=== PATIENT | male | born 1970 | race Caucasian/White ===

== ENCOUNTER 2016-03-12 00:33 | Emergency (ER) | payer MEDICARE, MEDICAID ==
[~2016-03-12] VITALS: Ht 180.3 cm; Wt 104.3 kg
[~2016-03-12 00:33] MED LIST: ACET-685 PO; ALBU2.5V2 IH; AMLO10TA4 PO; ATOR20TA PO; BUDE0.5P MC; BUDE10.2 IH; CALC600T4 PO; CARV3.12 PO; CLON0.2T PO; CYCL10TA2 PO; DULO30CA2 PO; GABA100C7 PO; HYDR-3105 PO; HYDR-3195 PO; LEVO175T5 PO; METO50TA2 PO; MINO2.5T PO; OMEP40CA6 PO; PANT40TA5 PO; PROM25TA10 PO; SERT50TA5 PO; SIMV20TA3 PO
--- NOTE | 2016-03-12 00:33 | NUR ---
ARRIVAL 45 YEAR OLD MALE TO ER 3 VIA EMS WITH DIFFICULTY BREATHING SINCE 8P, CHRONIC. LAST DIALYSIS 8 DAYS AGO. BREATHING TREATMENT IN PROGRESS.
--- NOTE | 2016-03-12 00:54 | ER.PDOC ---
General Chief Complaint: Requesting Medical Care Stated Complaint: DIFFICULTY BREATHING Time seen by MD: 00:52 Source: patient Exam Limitations: no limitations History of Present Illness Initial Comments Difficulty breathing. Has not had Dialysis for 8 days. Very non compliant with treatment. Severity: moderate Prior Episodes/Possible Cause: frequent episodes Associated Symptoms: edema Prior symptoms/Treatment: Similar symptoms previous Recenly Seen Treated by Doctor Recently Hospitalized Allergies: Coded Allergies: aspirin (Verified Allergy, Unknown, 02/15/16) codeine (Verified Allergy, Unknown, 02/15/16) enoxaparin (Verified Allergy, Unknown, 02/15/16) heparin (Verified Allergy, Unknown, 02/15/16) promethazine (Verified Allergy, Unknown, 02/15/16) Home Meds Reported Medications Budesonide, Micronized (Budesonide)0.5 Gm Powder0.5 Gm MC DAILY 02/23/16 Carvedilol 3.125MG (Coreg 3.125MG)3.125 Mg Tablet1 Tab PO BID #180 TAB Ref 1 02/23/16 Calcium Carbonate (Calcium)600 Mg [id number] Mg PO DAILY 02/23/16 Budesonide/Formoterol Fumarate (Symbicort 160-4.5 Mcg Inhaler)10.2 Gm Hfa.aer.ad2 Puff IH BID #10.6 GRAM Ref 3 02/23/16 Atorvastatin 20MG (Lipitor 20MG)20 Mg Tablet1 Tab PO DAILY #90 TAB Ref 1 02/23/16 Levothyroxine Sodium 175 Mcg Tablet1 Tab PO DAILY #30 TAB Ref 5 02/23/16 Pantoprazole Sodium 40 Mg Tablet.dr40 Mg PO DAILY 10/19/15 Albuterol Sulfate 2.5 Mg/3 Ml Vial.neb2.5 Mg IH PRN COUGH 01/27/14 Gabapentin 100 Mg Kpjxblx344 Mg PO BID 08/29/13 Past Medical History Surgical History: appendectomy, knee Review of Systems Constitutional: no symptoms reported Respiratory: see HPI Cardiovascular: no symptoms reported Gastrointestinal: no symptoms reported Genitourinary: no symptoms reported Musculoskeletal: no symptoms reported Skin: no symptoms reported Psychiatric/Neurological: no symptoms reported All Other Systems: Reviewed and Negative Physical Exam General Appearance: No Apparent Distress, WD/WN Neck: Non-Tender, Full Range of Motion, Supple, Normal Inspection Respiratory: chest non-tender, no accessory muscle use, crackles Cardiovascular: Normal Peripheral Pulses, Regular Rate, Rhythm, No Edema, No Gallop, No JVD, No Murmur Gastrointestinal: Normal Bowel Sounds, No Organomegaly, No Pulsatile Mass, Non Tender, Soft Extremities: Pedal Edema 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 Ulloa Problem Qualifiers Primary Impression: Volume overload Hypervolemia type: unspecified Qualified Code: E87.70 - Fluid overload, unspecified JOSUE REEVES MD Mar 12, 2016 00:54
--- NOTE | 2016-03-12 00:56 | NUR ---
FAYE GUZMAN MBA SPEAKING WITH FAYE , BETSY CALL US BACK
--- NOTE | 2016-03-12 01:00 | NUR ---
12 LEAD EKG - NSR 79
--- NOTE | 2016-03-12 01:05 | NUR ---
BSA BSA ON DIVERSION
[2016-03-12 01:06] LABS: BASOPHIL # 0.1 10^3/uL (0.0-0.1); BASOPHIL % 0.9 % (0.0-0.2); EOSINOPHIL # 0.2 10^3/uL (0.0-0.2); EOSINOPHIL % 2.7 % (0.0-5.0); HEMOGLOBIN 10.7 g/dL (13.9-16.3); LYMPHOCYTES # 0.8 10^3/uL (1.0-4.8); LYMPHOCYTES % 11.8 % (24.0-44.0); MEAN CELL HGB 30.6 pg (26-34); MEAN CELL HGB CONCENTRATION 30.7 g/dL (33-37); MEAN CORP VOLUME 99.7 fL (78-100); MEAN PLATELET VOLUME 9.8 fL (7.8-11.0); MONOCYTES # 0.6 10^3/uL (0.3-0.8); MONOCYTES % 8.7 % (5.0-12.0); NEUTROPHIL # 5.1 10^3/uL (1.8-7.7); NEUTROPHILS % 75.6 % (41.0-85.0); RED CELL DISTRIBUTION WIDTH 21.2 % (11.5-14.5); WHITE BLOOD CELL 6.8 10^3/uL (4.5-11.0)
[2016-03-12] MEDS ORDERED: NORCO 7.5MG PO STA (01:06)
--- NOTE | 2016-03-12 01:08 | NUR ---
DR. SANDOVAL, [facility] ACCEPTING FACE SHEET FAXED TO MALINDA JAY, RODENT EXTERMINATOR
--- NOTE | 2016-03-12 01:10 | NUR ---
PORTABLE CHEST X-RAY TAKEN
[2016-03-12] MEDS ORDERED: NORCO 7.5MG PO ONE (01:11)
--- NOTE | 2016-03-12 01:13 | PCM.OCF ---
Observation Criteria Forms RENAL FAILURE, CHRONIC: OBSERVATION CARE USE THIS FORM ONLY WHEN INPATIENT ADMISSION CRITERIA ARE NOT MET. (Place X for any and all applicable criteria): Placement for observation care is indicated for a patient with ANY ONE of the following(1)(2)(3): [X]I. Uremic complications not adequately treated by outpatient or emergency department care indicated by persistence of ANY ONE of the following: [X]a) Severe volume overload (eg, pulmonary edema)(4) []b) Severe hypertension []c) Symptomatic pleural effusion []d) Pericarditis or pericardial effusion []e) Nausea or vomiting []f) Significant metabolic abnormalities (eg, severe acidosis or hyperkalemia) []II. Dialysis indicated before long-term access can be established or ambulatory arrangements can be made (5)(6)(7) []III. Other observation needs ( Use General Criteria: Observation Care ) The original [employer] [employer] content created by [employer] has been revised. The portions of the content which have been revised are identified through the use of italic text, and [employer] has neither reviewed nor approved the modified material. All other unmodified content is copyright [employer]. Please see references footnoted in the original [employer] edition 2016 Is Observation Criteria comple: YES LIU [facility]INT [facility] Mar 12, 2016 01:13
--- NOTE | 2016-03-12 01:16 | PRM.ACF1 ---
Admission Criteria Forms RENAL FAILURE, CHRONIC Clinical Indications for Admission to Inpatient Care (Place 'X' for any and all applicable criteria): Admission is indicated for ANY ONE of the following (1)(2)(3)(4)(5): [ X]I. Inpatient admission required rather than observation care (Use Renal Failure, Chronic: Observation Care Criteria as appropriate) because of ANY ONE of the following: [X ]a) Volume overload or uremic symptoms (eg, clinically significant pulmonary edema, hypertension, pericarditis, acidosis) too severe for, or not responsive (eg, for over 24 hours) to emergency department or observation care dialysis or treatment regimen (11) [ ]b) Hemodynamic instability that is severe or persistent [ ]c) Respiratory distress that is severe or persistent (11) [ ]d) Clinically significant electrolyte abnormality that requires inpatient care (eg,hyperkalemia with severe ECG findings)[B] [ ]e) Supplement O2 or respiratory therapy for over 24hrs that is performable only in acute inpatient setting [ ]f) Continuous IV infusion of anticoagulation, platelet inhibitor, vasoactive, or Antiarrhythmic medication (15), [ ]g) Pulmonary artery catheter monitoring [ ]h) Temporary pacemaker placement [ ]i) Emergent pericardiocentesis [ ]j) Other condition, treatment or monitoring requiring inpatient admission [ ]II. Unexplained syncope [A] [ ]III. Recurrent seizures [ ]IV. Severe infections not treatable in outpatient setting (eg, peritonitis)(9 ) [ ]V. Cardiac arrhythmias of immediate concern [ ]. Encephalopathy [ ]VII.Bleeding abnormalities (eg, platelet dysfunction) with active (eg, gastrointestinal) bleeding Extended stay beyond goal length of stay may be needed for (3)(4)(35)(36): [ ]a) Continuing uremic complications [ ]b) Comorbidities or complications The original [employer] content created by [employer] has been revised. The portions of the content which have been revised are identified through the use of italic text or in bold, and [employer] has neither reviewed nor approved the modified material. All other unmodified content is copyright [employer]. Please see references footnoted in the original [employer] edition 2016 Is [facility]en[facility] added/comple: YES LIU TOUSSAINT [facility] Mar 12, 2016 01:16
--- NOTE | 2016-03-12 01:16 | NUR ---
IV START X2 UNSUCCESSFFUL BY Dougie DIOP RN. X1 SUCCESSRUL WITH 20G TO LUE BY Chelsi KELLY RN OBSERVING ASEPTIC TECH, FLUSHED AND SECURED WITH BIO-OCCLUSIVE DRESSING AND TAPE.
--- NOTE | 2016-03-12 01:17 | NUR ---
TRANSFER APPROVAL MESSAGE LEFT WITH DR. COSTA ANSWERING SERVICE
--- NOTE | 2016-03-12 01:17 | DIREP ---
PROCEDURE:CHEST 1 VIEW COMPARISON:[facility], CR, XRAY CHEST SINGLE VW, 03/02/2016, 04:22 PM. [facility], CR, XRAY CHEST SINGLE VW, 02/23/2016, 05:56 PM. [facility], CR, XRAY CHEST 2 VWS, 11/27/2015, 04:45 AM. INDICATIONS:Dyspnea FINDINGS: LUNGS/PLEURA:Mild prominence of the interstitial markings. No other significant pulmonary parenchymal abnormalities. No effusions. VASCULATURE:Mildly increased pulmonary vasculature. CARDIAC:Mild cardiomegaly. MEDIASTINUM:Normal. No visible mass or adenopathy. BONES:Normal. No fracture or visible bony lesion. OTHER:Negative. CONCLUSION:Findings consistent with mild CHF/fluid overload. Dictated by: Royer Valles M.D. on 03/12/2016 at 01:15 AM
[2016-03-12 01:22] LABS: ALANINE AMINOTRANSFERASE(ML) 11 U/L (12-78); ALKALINE PHOSPHATASE 211 U/L (50-136); ASPARTATE AMINO TRANSFERASE 20 U/L (0-35); CALCIUM 8.1 mg/dL (8.4-10.5); CARBON DIOXIDE 18.7 mmol/L (20.0-32); GLUCOSE 88 mg/dL (70-110)
--- NOTE | 2016-03-12 01:33 | NUR ---
BLOOD PRESSURE'S TAKEN ON RIGHT ARM FISTULA ON LEFT ARM
--- NOTE | 2016-03-12 01:38 | NUR ---
EMS CALLED EMS FOR TRANSFER
--- NOTE | 2016-03-12 01:41 | NUR ---
REPORT CALLED TO [facility] ER
--- NOTE | 2016-03-12 01:58 | NUR ---
OUT WITH [facility] TO [facility]
[2016-03-12 01:59] VITALS: BP 144/114
== END 2016-03-12 01:58 | disposition short-term general hospital (02) ==
LOC: EDBD 00:33 → ER 00:33
DX: E87.70 Fluid overload, unspecified (principal); N18.6 End stage renal disease; Z91.14 Patient's other noncompliance with medication regimen; Z99.2 Dependence on renal dialysis; Z91.19 Patient's noncompliance with other medical treatment and regimen; Z88.6 Allergy status to analgesic agent; Z88.5 Allergy status to narcotic agent; Z79.899 Other long term (current) drug therapy; Z88.8 Allergy status to other drugs, medicaments and biological substances
CPT/HCPCS: 36415; 71010; 80053; 85025; 93005; 99285; 71045

== ENCOUNTER 2016-03-17 00:44 | Emergency (ER) | payer MEDICARE, MEDICAID ==
[~2016-03-17] VITALS: Ht 180.3 cm; Wt 99.8 kg
--- NOTE | 2016-03-17 00:58 | NUR ---
STATUS STATES HE WAS AT HOME TRYING TO BAKE A CAKE AND HAD INCREASED SOB.
--- NOTE | 2016-03-17 01:24 | NUR ---
UNSUCCESSFUL IV ATTEMPT X 2 BY Tosha GANNON RN.
[2016-03-17 01:33] LABS: ABG OXYGEN SATURATION 74.4 % (95-); ABG PCO2 42.5 mmHg (35.0-45.0); ABG PH 7.381 (7.350-7.450); ALLEN TEST POSITIVE; BE(B) -0.5 mmol/L (-2.0-2.0); HCO3act 24.6 mmol/L (22.0-26.0); pO2 44.1 mmHg (75.0-100.0)
[2016-03-17 01:34] LABS: CO-OX CARBOXYHEMOGLOBIN 2.2 % (0.5-1.5); CO-OX METHEMOGLOBIN 0.4 % (0.2-0.6); ctCO2 25.9 mmol/L (23-27)
--- NOTE | 2016-03-17 01:34 | ER.PDOC ---
General Chief Complaint: Dyspnea/Respdistress Stated Complaint: DIFF BREATHING Time seen by MD: 01:00 Source: patient History of Present Illness Initial Comments short of breath Timing/Duration: 24 hours, increasing Severity: moderate Activities at Onset: none Prior Episodes/Possible Cause: frequent episodes, chronic episodes Modifying Factors: improves with activity Associated Symptoms: denies symptoms Prior symptoms/Treatment: Similar symptoms previous Recenly Seen (last dialysis was on 03/13) Allergies: Coded Allergies: aspirin (Verified Allergy, Unknown, 03/17/16) codeine (Verified Allergy, Unknown, 03/17/16) enoxaparin (Verified Allergy, Unknown, 03/17/16) heparin (Verified Allergy, Unknown, 03/17/16) promethazine (Verified Allergy, Unknown, 03/17/16) Home Meds Reported Medications Budesonide, Micronized (Budesonide)0.5 Gm Powder0.5 Gm MC DAILY 02/23/16 Carvedilol 3.125MG (Coreg 3.125MG)3.125 Mg Tablet1 Tab PO BID #180 TAB Ref 1 02/23/16 Calcium Carbonate (Calcium)600 Mg Xitqgr551 Mg PO DAILY 02/23/16 Budesonide/Formoterol Fumarate (Symbicort 160-4.5 Mcg Inhaler)10.2 Gm Hfa.aer.ad2 Puff IH BID #10.6 GRAM Ref 3 02/23/16 Atorvastatin 20MG (Lipitor 20MG)20 Mg Tablet1 Tab PO DAILY #90 TAB Ref 1 02/23/16 Levothyroxine Sodium 175 Mcg Tablet1 Tab PO DAILY #30 TAB Ref 5 02/23/16 Pantoprazole Sodium 40 Mg Tablet.dr40 Mg PO DAILY 10/19/15 Albuterol Sulfate 2.5 Mg/3 Ml Vial.neb2.5 Mg IH PRN COUGH 01/27/14 Gabapentin 100 Mg Cspqkmc234 Mg PO BID 08/29/13 Past Medical History Medical History: congestive heart failure, COPD Surgical History: appendectomy, knee Social History Smoking: non-smoker Alcohol Use: none Drug Use: none Review of Systems Constitutional: no symptoms reported EENTM: no symptoms reported Respiratory: see HPI Cardiovascular: no symptoms reported Gastrointestinal: no symptoms reported Genitourinary: no symptoms reported Musculoskeletal: no symptoms reported Skin: no symptoms reported Psychiatric/Neurological: no symptoms reported Endocrine: no symptoms reported Physical Exam General Appearance: No Apparent Distress, WD/WN HEENT: PERRL/EOMI Neck: Non-Tender Respiratory: rales Cardiovascular: Normal Peripheral Pulses, Regular Rate, Rhythm Gastrointestinal: Normal Bowel Sounds, Soft Extremities: Pedal Edema Neurologic/Psychiatric: No Motor/Sensory Deficits Skin: Normal Color, Warm/Dry Results/Orders Results/Orders Laboratory Tests Test 03/17/16 01:14 03/17/16 01:26 Sodium Level 142mmol\L (132-145) Potassium Level 5.3mmol/L (3.6-5.2) Chloride Level 103.0mmol/L (96-109) Carbon Dioxide Level 26.0mmol/L (20.0-32) Anion Gap 18.3 Blood Urea Nitrogen 66mg/dL (7-18) Creatinine 7.73mg/dL (0.59-1.40) Estimat Glomerular Filtration Rate >60 BUN/Creatinine Ratio 8.0 Glucose Level 104mg/dL (70-110) Calculated Osmolality 312.5 Calcium Level 7.5mg/dL (8.4-10.5) Total Bilirubin 1.2mg/dL (0.2-1.0) Aspartate Amino Transf (AST/SGOT) 24U/L (0-35) Alanine Aminotransferase (ALT/SGPT) 17U/L (12-78) Alkaline Phosphatase 211U/L (50-136) Pro-B-Type Natriuretic Peptide 44438sl/mL (0-125) Total Protein 7.2g/dL (6.4-8.2) Albumin 3.3g/dL (3.4-5.0) Globulin 3.9 Blood Gas Puncture Site Rt radial artery Blood Gas pH 7.381 (7.350-7.450) Blood Gas PCO2 42.5mmHg (35.0-45.0) Blood Gas PO2 44.1mmHg (75.0-100.0) Blood Gas HCO3 24.6mmol/L (22.0-26.0) Blood Gas Total CO2 25.9mmol/L (23-27) Blood Gas Base Excess -0.5mmol/L (-2.0-2.0) Bedside Blood Gas O2 Saturation 74.4% (95-) [place] Test Positive Arterial Blood Lactic Acid 1.2MMOL/L (0.5-1.0) Carboxyhemoglobin 2.2% (0.5-1.5) Methemoglobin, Quantitative 0.4% (0.2-0.6) Blood Gas Oxygen Given Nasal cannula Blood Gas Inspired Oxygen 32% (20-101) Progress Progress meets criteria for emergency dialysis. transfer to [facility] Dr Ann accepts. EKG/XRAY/CT/US EKG: NSR (rate 98, nml axis, no ectopy, nml t waves, qt 380) Departure Time of Disposition: 01:33 Disposition: 02 XFER SHT-TRM HOSP Impression: Primary Impression: Hyperkalemia Additional Impression: Volume overload Referrals: ALIREZA PAUL TV PRODUCTION ASSISTANT (PCP) PRIMARY CARE PROVIDER Problem Qualifiers JOVANNY KURTZ MD Mar 17, 2016 01:33
[2016-03-17 02:00] VITALS: BP 157/102
[2016-03-17 02:06] LABS: GLUCOSE 104 mg/dL (70-110)
[2016-03-17 02:07] LABS: ALANINE AMINOTRANSFERASE(ML) 17 U/L (12-78); ALKALINE PHOSPHATASE 211 U/L (50-136); ASPARTATE AMINO TRANSFERASE 24 U/L (0-35); CALCIUM 7.5 mg/dL (8.4-10.5)
--- NOTE | 2016-03-17 02:29 | DIREP ---
PROCEDURE:CHEST 1 VIEW COMPARISON:[facility], CR, XRAY CHEST SINGLE VW, 01/27/2016, 07:21 PM. [facility], CR, XRAY CHEST SINGLE VW, 03/12/2016, 00:44 AM. [facility], CR, XRAY CHEST SINGLE VW, 03/02/2016, 04:22 PM. INDICATIONS:short of breath FINDINGS: LUNGS/PLEURA:Increased interstitial markings both lungs, unchanged. No air bronchograms or consolidation detected. CARDIAC:Cardiomegaly unchanged MEDIASTINUM:Normal. No visible mass or adenopathy. BONES:Normal. No fracture or visible bony lesion. OTHER:Negative. CONCLUSION:Increased interstitial markings both lungs with cardiomegaly. No consolidation. No lateral view. Dictated by: Brittney Sanchez MD on 03/17/2016 at 02:27 AM
--- NOTE | 2016-03-17 02:39 | NUR ---
DR COSTA CONTACTED, OK TO TRANSFER
--- NOTE | 2016-03-17 02:40 | NUR ---
EMS CONTACTED NOTIFIED ABOUT TRANSFER
--- NOTE | 2016-03-17 02:41 | NUR ---
DR KURTZ OK TO TRANSFER WITHOUT IV ACCESS.
== END 2016-03-17 03:08 | disposition short-term general hospital (02) ==
LOC: ER 00:44
DX: E87.70 Fluid overload, unspecified (principal); E87.5 Hyperkalemia; I50.9 Heart failure, unspecified; J44.9 Chronic obstructive pulmonary disease, unspecified; Z99.2 Dependence on renal dialysis; Z88.6 Allergy status to analgesic agent; Z88.5 Allergy status to narcotic agent; Z88.8 Allergy status to other drugs, medicaments and biological substances; Z79.899 Other long term (current) drug therapy
CPT/HCPCS: 36415; 36600; 71010; 80053; 82803; 83880; 93005; 99285; 71045

== ENCOUNTER 2016-12-15 21:39 | Emergency (ER) | payer MEDICARE, MEDICAID ==
[~2016-12-15] VITALS: Ht 177.8 cm; Wt 99.8 kg
[2016-12-15 22:03] LABS: BASOPHIL % 0.5 % (0.0-0.2); EOSINOPHIL # 0.2 10^3/uL (0.0-0.2); EOSINOPHIL % 6.2 % (0.0-5.0); HEMOGLOBIN 9.9 g/dL (13.9-16.3); LYMPHOCYTES # 0.6 10^3/uL (1.0-4.8); LYMPHOCYTES % 15.6 % (24.0-44.0); MEAN CELL HGB 30.4 pg (26-34); MEAN CELL HGB CONCENTRATION 31.6 g/dL (33-37); MEAN PLATELET VOLUME 9.6 fL (7.8-11.0); MONOCYTES # 0.5 10^3/uL (0.3-0.8); MONOCYTES % 12.6 % (5.0-12.0); NEUTROPHIL # 2.4 10^3/uL (1.8-7.7); NEUTROPHILS % 64.8 % (41.0-85.0); WHITE BLOOD CELL 3.7 10^3/uL (4.5-11.0)
--- NOTE | 2016-12-15 22:05 | PCM.EKG ---
[facility] Test Date: 2016-12-15 Test Time: 22:09:17 Pat Name: JUAN ZAIDI Department: [id number] Room: Gender: M Strapper: BILLY : 1970 Requested By: OLIVER SHAFFER Order Number: [id number] Reading MD: Kip REEVES Measurements Intervals [place] Rate: 63 P: 35 CT: 222 QRS: 130 QRSD: 142 T: 18 QT: 506 QTc: 517 Interpretive Statements Sinus rhythm with 1st degree AV block with premature atrial complexes in a pattern of bigeminy Right bundle branch block Abnormal ECG No previous ECG available for comparison Electronically Signed On 12-16-2016 23:34:49 CDT by Kip REEVES Please click the below link to view image of tracing.
[2016-12-15 22:29] LABS: ALANINE AMINOTRANSFERASE 14 U/L (12-78); ALKALINE PHOSPHATASE 149 U/L (50-136); ASPARTATE AMINO TRANSFERASE 16 U/L (0-35); CALCIUM 6.1 mg/dL (8.4-10.5); CARBON DIOXIDE 19.9 mmol/L (20.0-32); GLUCOSE 82 mg/dL (70-110)
[2016-12-15] MEDS ORDERED: CALCIUM GLUCONATE IV STA (22:38)
[2016-12-15] MEDS ORDERED: DEXTROSE 50%-WATER SYRINGE IV STA (22:38)
--- NOTE | 2016-12-15 22:39 | DIREP ---
PROCEDURE:CHEST 1 VIEW COMPARISON:[facility], CR, XRAY CHEST SINGLE VW, 03/28/2016, 07:11 AM. INDICATIONS:SOB, PT MISSED DIALYSIS FINDINGS: LUNGS/PLEURA:Increased interstitial lung markings, greater in the right parahilar region. No definite pleural effusion. VASCULATURE:Mildly increased pulmonary vasculature. CARDIAC:Moderate cardiomegaly. MEDIASTINUM:Normal, except for widening superiorly, without change. BONES:Normal. No fracture or visible bony lesion. OTHER:Right IJ central venous catheter tip about the SVC. CONCLUSION:Mild pulmonary edema/CHF. Right parahilar interstitial infiltrate cannot be excluded. The dialysis catheter is in good position. No pneumothorax. Dictated by: Mario Doyle M.D. on 12/15/2016 at 10:35 PM
--- NOTE | 2016-12-15 22:46 | ER.PDOC ---
General Chief Complaint: Dyspnea/Respdistress Stated Complaint: SHORTNESS OF BREATH Time seen by MD: 22:15 Source: patient, EMS History of Present Illness Initial Comments pt has ESRD on TThS schedule, he missed Thursday dyalysis and became dyspnic Severity: moderate Activities at Onset: rest Prior Episodes/Possible Cause: frequent episodes Associated Symptoms: anxiety Allergies: Coded Allergies: aspirin (Verified Allergy, Unknown, 03/17/16) codeine (Verified Allergy, Unknown, 03/17/16) enoxaparin (Verified Allergy, Unknown, 03/17/16) heparin (Verified Allergy, Unknown, 03/17/16) promethazine (Verified Allergy, Unknown, 03/17/16) Home Meds Reported Medications Budesonide, Micronized (BUDESONIDE) 0.5 Gm Powder, 0.5 GM MC DAILY 02/23/16 Carvedilol 3.125MG (COREG 3.125MG) 3.125 Mg Tablet, 1 TAB PO BID, #180 TAB 1 Refill 02/23/16 Calcium Carbonate (CALCIUM) 600 Mg Tablet, 600 MG PO DAILY, TABLET 02/23/16 Budesonide/Formoterol Fumarate (SYMBICORT 160-4.5 MCG INHALER) 10.2 Gm Hfa.aer.ad, 2 PUFF IH BID, #10.6 GRAM 3 Refills 02/23/16 Atorvastatin 20MG (LIPITOR 20MG) 20 Mg Tablet, 1 TAB PO DAILY, #90 TAB 1 Refill 02/23/16 Levothyroxine Sodium (LEVOTHYROXINE SODIUM) 175 Mcg Tablet, 1 TAB PO DAILY, #30 TAB 5 Refills 02/23/16 Pantoprazole Sodium (PANTOPRAZOLE SODIUM) 40 Mg Tablet.dr, 40 MG PO DAILY 10/19/15 Albuterol Sulfate (ALBUTEROL SULFATE) 2.5 Mg/3 Ml Vial.neb, 2.5 MG IH Y for COUGH 01/27/14 Gabapentin (GABAPENTIN) 100 Mg Capsule, 300 MG PO BID, CAPSULE 08/29/13 Past Medical History Medical History: COPD, diabetes, hypertension, renal disease Surgical History: cardiac cath, appendectomy, tonsillectomy Social History Smoking: non-smoker Alcohol Use: none Drug Use: none Review of Systems EENTM: no symptoms reported Respiratory: see HPI, shortness of breath, other (orthopnea) Cardiovascular: see HPI Gastrointestinal: no symptoms reported Skin: no symptoms reported Endocrine: no symptoms reported Physical Exam General Appearance: Moderate Distress HEENT: PERRL/EOMI, Normal ENT Inspection, TMs Normal, Pharynx Normal Neck: Non-Tender, Full Range of Motion, Supple, Normal Inspection Respiratory: respiratory distress, decreased breath sounds, retractions Cardiovascular: Normal Peripheral Pulses, Regular Rate, Rhythm, No Edema, No Gallop, No JVD, No Murmur Gastrointestinal: Normal Bowel Sounds, No Organomegaly, No Pulsatile Mass, Non Tender, Soft 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 as Tested, No Motor/Sensory Deficits Skin: Other (chronic LE changes) Central Line Central Line : Central Line Lumen: triple Central Line Procedure: betadine prep, sterile drapes applied Central Line Postion: femoral (L) Anesthesia: Lidocaine cc's of anesthesia: 3 Complications: none Central Line Post Position: good blood return Results/Orders Results/Orders Laboratory Tests Test 12/15/16 22:00 White Blood Count 3.7 10^3/uL (4.5-11.0) Red Blood Count 3.26 10^6/uL (4.50-5.90) Hemoglobin 9.9 g/dL (13.9-16.3) Hematocrit 31.3 % (37.0-53.0) Mean Corpuscular Volume 96.0 fL (78-100) Mean Corpuscular Hemoglobin 30.4 pg (26-34) Mean Corpuscular Hemoglobin Concent 31.6 g/dL (33-37) Red Cell Distribution Width 19.0 % (11.5-14.5) Platelet Count 81 10^3/uL (150-400) Mean Platelet Volume 9.6 fL (7.8-11.0) Neutrophils (%) (Auto) 64.8 % (41.0-85.0) Lymphocytes (%) (Auto) 15.6 % (24.0-44.0) Monocytes (%) (Auto) 12.6 % (5.0-12.0) Neutrophils # (Auto) 2.4 10^3/uL (1.8-7.7) Lymphocytes # (Auto) 0.6 10^3/uL (1.0-4.8) Monocytes # (Auto) 0.5 10^3/uL (0.3-0.8) Absolute Immature Granulocyte (auto 0.01 10^3 u/L (0-2) Eosinophils % 6.2 % (0.0-5.0) Basophils % 0.5 % (0.0-0.2) Basophils # 0.0 10^3/uL (0.0-0.1) Eosinophil Count 0.2 10^3/uL (0.0-0.2) D-Dimer 1.32 mg/L (0.19-0.49) Sodium Level 140 mmol/L (132-145) Potassium Level 8.1 mmol/L (3.6-5.2) Chloride Level 102.0 mmol/L (96-109) Carbon Dioxide Level 19.9 mmol/L (20.0-32) Anion Gap 26.2 Blood Urea Nitrogen 146 mg/dL (7-18) Creatinine 14.11 mg/dL (0.59-1.40) Estimated GFR () 4.6 (>/=60) BUN/Creatinine Ratio 10.0 Glucose Level 82 mg/dL (70-110) Calcium Level 6.1 mg/dL (8.4-10.5) Total Bilirubin 0.8 mg/dL (0.2-1.0) Aspartate Amino Transf (AST/SGOT) 16 U/L (0-35) Alanine Aminotransferase (ALT/SGPT) 14 U/L (12-78) Alkaline Phosphatase 149 U/L (50-136) Troponin I < 0.02 ng/mL (0.00-0.05) Pro-B-Type Natriuretic Peptide 42784 pg/mL (0-125) Total Protein 7.3 g/dL (6.4-8.2) Albumin 3.6 g/dL (3.4-5.0) Globulin 3.7 Percent Immature Gran (Cell Imm) 0.30 % (0.00-0.50) Administered Medications Medications (Trade) Dose Ordered Sig/Miguel Route PRN Reason Start Time Stop Time Status Last Admin Dose Admin Dextrose (Dextrose 50%-Water Syringe) 25 ml STAT STAT IV 12/15/16 22:38 12/15/16 22:42 DC 12/16/16 00:01 Insulin Human Regular (Humulin R) 10 unit OT ONCE IV 12/15/16 23:00 12/15/16 23:01 DC 12/16/16 00:02 Calcium Gluconate (Calcium Gluconate) 1,000 mg STAT STAT IV 12/15/16 22:38 12/15/16 22:42 DC 12/16/16 00:01 Progress Progress discussed need for transfer and immediate dialysis Departure Time of Disposition: 00:16 Disposition: 02 XFER SHT-TRM HOSP Impression: Primary Impression: CHF (congestive heart failure) Additional Impression: ESRD (end stage renal disease) on dialysis Condition: Improved Referrals: ALIREZA PAUL PROCESS OWNER (PCP) PRIMARY CARE PROVIDER Problem Qualifiers Primary Impression: CHF (congestive heart failure) Congestive heart failure type: unspecified congestive heart failure type Congestive heart failure chronicity: acute Qualified Codes: I50.9 - Heart failure, unspecified OLIVER SHAFFER MD Dec 15, 2016 22:46
[2016-12-15] MEDS ORDERED: HUMULIN R IV ONE (23:00)
--- NOTE | 2016-12-15 23:23 | NUR ---
IV ATTEMPT B. JULIA KELLY ATTEMPTING TO START IV , PATIENT JERKED IT OUT WITNESSED BY DR SCHWARTZ. PATIENT BELLIGERENT , SCREAMING , DR SHAFFER AND DR SCHWARTZ AT BEDSIDE
--- NOTE | 2016-12-15 23:40 | NUR ---
[facility] DR SHAFFER SPEAKING WITH [facility] DR NIETO ACCEPTS
[2016-12-15] MEDS ORDERED: HUMALOG ONE (23:47)
[2016-12-15] MEDS ORDERED: DEXTROSE 50%-WATER SYRINGE IV ONE (23:47)
[2016-12-15] MEDS ORDERED: CALCIUM CHLORIDE IV ONE (23:48)
--- NOTE | 2016-12-16 | NUR ---
PAT STEWART UNABLE TO FLY AT THIS TIME
--- NOTE | 2016-12-16 00:06 | NUR ---
JULIET CHUNG UNABLE TO TAKE FLIGHT AT THIS TIME
--- NOTE | 2016-12-16 00:07 | NUR ---
REPORT REPORT GIVEN TO MICA GRAY [facility]
--- NOTE | 2016-12-16 00:11 | NUR ---
EMS CALLEDEMS FOR TRANSPORT
--- NOTE | 2016-12-16 00:16 | NUR ---
EMS HERE FOR TRANSPORT
[2016-12-16 00:34] VITALS: BP 130/73
== END 2016-12-16 00:23 | disposition short-term general hospital (02) ==
LOC: EDBD 21:39 → ER 21:39
DX: I13.2 Hypertensive heart and chronic kidney disease with heart failure and with stage 5 chronic kidney disease, or end stage renal disease (principal); I50.9 Heart failure, unspecified; N18.6 End stage renal disease; E11.22 Type 2 diabetes mellitus with diabetic chronic kidney disease; J44.9 Chronic obstructive pulmonary disease, unspecified; R06.02 Shortness of breath; Z45.2 Encounter for adjustment and management of vascular access device; Z99.2 Dependence on renal dialysis; Z88.8 Allergy status to other drugs, medicaments and biological substances
CPT/HCPCS: 36415; 71010; 80053; 83880; 84484; 85025; 85379; 93005; 96374; 96375; 99291; J1815; J3490; J7060

== ENCOUNTER 2016-12-27 13:21 | Emergency (ER) | payer MEDICARE, MEDICAID ==
[~2016-12-27] VITALS: Ht 180.3 cm; Wt 97.5 kg
--- NOTE | 2016-12-27 13:25 | NUR ---
ARRIVAL PATIENT ARRIVED VIA PRIVATE VEHICLE, TO ROOM 1. CONNECTED TO ALL MONITORS, ASSESSMENT COMPLETED, AWAITING MD WALKER.
--- NOTE | 2016-12-27 13:43 | PCM.EKG ---
[facility] Test Date: 2016-12-27 Test Time: 13:47:33 Pat Name: JUAN ZAIDI Department: Room: Gender: M [employer]: : 1970 Requested By: JOSUE REEVES Order Number: [id number] Reading MD: Measurements Intervals [place] Rate: 96 P: 38 NM: 170 QRS: 46 QRSD: 104 T: 7 QT: 398 QTc: 502 Interpretive Statements Normal sinus rhythm Nonspecific T wave abnormality Prolonged QT Abnormal ECG Compared to ECG 12/15/2016 22:09:17 T-wave abnormality now present Prolonged QT interval now present Atrial premature complex(es) no longer present First degree AV block no longer present Right bundle-branch block no longer present Please click the below link to view image of tracing.
[2016-12-27 13:45] LABS: BASOPHIL % 0.5 % (0.0-0.2); EOSINOPHIL # 0.2 10^3/uL (0.0-0.2); EOSINOPHIL % 3.9 % (0.0-5.0); HEMOGLOBIN 9.7 g/dL (13.9-16.3); LYMPHOCYTES # 0.6 10^3/uL (1.0-4.8); LYMPHOCYTES % 13.6 % (24.0-44.0); MEAN CELL HGB 30.6 pg (26-34); MEAN CELL HGB CONCENTRATION 34.5 g/dL (33-37); MEAN CORP VOLUME 88.6 fL (78-100); MEAN PLATELET VOLUME 8.4 fL (7.8-11.0); MONOCYTES # 0.5 10^3/uL (0.3-0.8); MONOCYTES % 10.4 % (5.0-12.0); NEUTROPHIL # 3.1 10^3/uL (1.8-7.7); NEUTROPHILS % 71.6 % (41.0-85.0); WHITE BLOOD CELL 4.3 10^3/uL (4.5-11.0)
--- NOTE | 2016-12-27 14:11 | DIREP ---
PROCEDURE:CHEST 1 VIEW COMPARISON:[facility], CR, XRAY CHEST SINGLE VW, 12/15/2016, 10:05 PM. INDICATIONS:DYSPNEA FINDINGS: LUNGS/PLEURA:Mild increase interstitial markings are seen in the lungs bilaterally. No focal consolidation or pleural effusion is seen. VASCULATURE:The pulmonary vascular markings remain increased and indistinct. CARDIAC:The heart size remains mildly enlarged. MEDIASTINUM:Normal. No visible mass or adenopathy. BONES:Normal. No fracture or visible bony lesion. OTHER:A right-sided dialysis catheter line is unchanged in position. CONCLUSION:Mild cardiomegaly with pulmonary vascular congestion and probable mild interstitial pulmonary edema. Dictated by: Antolin Rebolledo M.D. on 12/27/2016 at 02:09 PM
[2016-12-27 14:29] LABS: CALCIUM 8.2 mg/dL (8.4-10.5); CARBON DIOXIDE 21.6 mmol/L (20.0-32)
--- NOTE | 2016-12-27 14:50 | NUR ---
UPDATE TALKED TO [facility] [employer], AT [facility].
--- NOTE | 2016-12-27 15:00 | NUR ---
UPDATE UPDATE DR. NIETO ACCEPTING PATIENT FROM DR. SALAS
--- NOTE | 2016-12-27 15:01 | ER.PDOC ---
General Chief Complaint: Chest Pain-Cardiac Nature Stated Complaint: CHEST PAINS Time seen by MD: 14:57 Source: patient Exam Limitations: no limitations History of Present Illness Initial Comments Difficulty breathing today. Missed dialysis. Patient is non compliant. Severity: moderate Associated Symptoms: edema Allergies: Coded Allergies: aspirin (Verified Allergy, Unknown, 03/17/16) codeine (Verified Allergy, Unknown, 03/17/16) enoxaparin (Verified Allergy, Unknown, 03/17/16) heparin (Verified Allergy, Unknown, 03/17/16) promethazine (Verified Allergy, Unknown, 03/17/16) Home Meds Reported Medications Budesonide, Micronized (BUDESONIDE) 0.5 Gm Powder, 0.5 GM MC DAILY 02/23/16 Carvedilol 3.125MG (COREG 3.125MG) 3.125 Mg Tablet, 1 TAB PO BID, #180 TAB 1 Refill 02/23/16 Calcium Carbonate (CALCIUM) 600 Mg Tablet, 600 MG PO DAILY, TABLET 02/23/16 Budesonide/Formoterol Fumarate (SYMBICORT 160-4.5 MCG INHALER) 10.2 Gm Hfa.aer.ad, 2 PUFF IH BID, #10.6 GRAM 3 Refills 02/23/16 Atorvastatin 20MG (LIPITOR 20MG) 20 Mg Tablet, 1 TAB PO DAILY, #90 TAB 1 Refill 02/23/16 Levothyroxine Sodium (LEVOTHYROXINE SODIUM) 175 Mcg Tablet, 1 TAB PO DAILY, #30 TAB 5 Refills 02/23/16 Pantoprazole Sodium (PANTOPRAZOLE SODIUM) 40 Mg Tablet.dr, 40 MG PO DAILY 10/19/15 Albuterol Sulfate (ALBUTEROL SULFATE) 2.5 Mg/3 Ml Vial.neb, 2.5 MG IH Y for COUGH 01/27/14 Gabapentin (GABAPENTIN) 100 Mg Capsule, 300 MG PO BID, CAPSULE 08/29/13 Past Medical History Medical History: cardiac problems, COPD, renal disease Surgical History: appendectomy, other Social History Smoking: non-smoker Alcohol Use: none Drug Use: none Review of Systems Constitutional: no symptoms reported Respiratory: see HPI Cardiovascular: no symptoms reported Gastrointestinal: no symptoms reported All Other Systems: Reviewed and Negative Physical Exam General Appearance: No Apparent Distress, WD/WN Respiratory: chest non-tender, respiratory distress (mild), rales Cardiovascular: Normal Peripheral Pulses, Regular Rate, Rhythm, No Gallop, No JVD, No Murmur Gastrointestinal: Normal Bowel Sounds, No Organomegaly, No Pulsatile Mass, Non Tender, Soft Extremities: Pedal Edema 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4 % (5.0-12.0) Neutrophils # (Auto) 3.1 10^3/uL (1.8-7.7) Lymphocytes # (Auto) 0.6 10^3/uL (1.0-4.8) Monocytes # (Auto) 0.5 10^3/uL (0.3-0.8) Absolute Immature Granulocyte (auto 0 10^3 u/L (0-2) Eosinophils % 3.9 % (0.0-5.0) Basophils % 0.5 % (0.0-0.2) Basophils # 0.0 10^3/uL (0.0-0.1) Eosinophil Count 0.2 10^3/uL (0.0-0.2) Sodium Level 139 mmol/L (132-145) Potassium Level 4.9 mmol/L (3.6-5.2) Chloride Level 103.0 mmol/L (96-109) Carbon Dioxide Level 21.6 mmol/L (20.0-32) Anion Gap 19.3 Blood Urea Nitrogen 102 mg/dL (7-18) Creatinine 11.52 mg/dL (0.59-1.40) Estimated GFR () 5.8 (>/=60) BUN/Creatinine Ratio 8.0 Glucose Level 116 mg/dL (70-110) Calcium Level 8.2 mg/dL (8.4-10.5) Total Bilirubin 1.4 mg/dL (0.2-1.0) Aspartate Amino Transf (AST/SGOT) 31 U/L (0-35) Alanine Aminotransferase (ALT/SGPT) 10 U/L (12-78) Alkaline Phosphatase 157 U/L (50-136) Total Creatine Kinase 115 U/L (39-308) Creatine Kinase MB 11.1 ng/mL (0.5-3.6) Troponin I 0.03 ng/mL (0.00-0.05) Pro-B-Type Natriuretic Peptide 20170 pg/mL (0-125) Total Protein 7.0 g/dL (6.4-8.2) Albumin 3.7 g/dL (3.4-5.0) Globulin 3.3 Percent Immature Gran (Cell Imm) 0.00 % (0.00-0.50) EKG/XRAY/CT/US XRAY: chest (Pulmonary vascular congestion) Departure Time of Disposition: 15:00 Disposition: 02 XFER SHT-TRM HOSP Impression: Primary Impression: Respiratory distress Additional Impression: Volume overload Condition: Stable Referrals: ALIREZA PAUL BOILER SHOP MECHANIC (PCP) PRIMARY CARE PROVIDER Comments Transfer to [facility] ED for Dr. Manning Problem Qualifiers Additional Impression: Volume overload Hypervolemia type: unspecified Qualified Codes: E87.70 - Fluid overload, unspecified JOSUE REEVES MD Dec 27, 2016 15:01
--- NOTE | 2016-12-27 15:42 | NUR ---
UPDATE THIS NURSE CALLED REPORT TO [facility] ER. AMBER RIVERA, FIRM ADMINISTRATOR.
[2016-12-27 15:47] VITALS: BP 168/108
== END 2016-12-27 15:40 | disposition short-term general hospital (02) ==
LOC: ER 13:21
DX: R06.03 Acute respiratory distress (principal); E87.70 Fluid overload, unspecified; J44.9 Chronic obstructive pulmonary disease, unspecified; R60.0 Localized edema; Z99.2 Dependence on renal dialysis; Z88.5 Allergy status to narcotic agent; Z88.8 Allergy status to other drugs, medicaments and biological substances; Z79.899 Other long term (current) drug therapy
CPT/HCPCS: 36415; 71010; 80053; 82550; 82553; 83880; 84484; 85025; 93005; 99285

== ENCOUNTER 2016-12-30 20:23 | Emergency (ER) | payer MEDICARE, MEDICAID ==
[~2016-12-30] VITALS: Ht 180.3 cm; Wt 96.7 kg
--- NOTE | 2016-12-30 20:48 | PCM.EKG ---
[facility] Test Date: 2016-12-30 Test Time: 20:36:26 Pat Name: JUAN ZAIDI Department: Room: Gender: M Evaporator: RT : 1970 Requested By: OLIVER SHAFFER Order Number: [id number] Reading MD: Kip REEVES Measurements Intervals [place] Rate: 107 P: 43 [place]: 190 QRS: 108 QRSD: 108 T: 43 QT: 356 QTc: 475 Interpretive Statements Sinus tachycardia T wave abnormality, consider anterior ischemia Abnormal ECG Compared to ECG 12/15/2016 22:09:17 T-wave abnormality now present Possible ischemia now present Sinus rhythm no longer present Atrial premature complex(es) no longer present First degree AV block no longer present Right bundle-branch block no longer present Electronically Signed On 01-02-2017 22:50:05 CDT by Kip REEVES Please click the below link to view image of tracing.
[2016-12-30 20:59] LABS: BASOPHIL % 0.5 % (0.0-0.2); EOSINOPHIL # 0.1 10^3/uL (0.0-0.2); EOSINOPHIL % 1.9 % (0.0-5.0); HEMOGLOBIN 9.8 g/dL (13.9-16.3); LYMPHOCYTES # 0.4 10^3/uL (1.0-4.8); LYMPHOCYTES % 9.7 % (24.0-44.0); MEAN CELL HGB 29.8 pg (26-34); MEAN CELL HGB CONCENTRATION 32.6 g/dL (33-37); MEAN CORP VOLUME 91.5 fL (78-100); MEAN PLATELET VOLUME 8.6 fL (7.8-11.0); MONOCYTES # 0.6 10^3/uL (0.3-0.8); MONOCYTES % 12.8 % (5.0-12.0); NEUTROPHIL # 3.2 10^3/uL (1.8-7.7); NEUTROPHILS % 74.9 % (41.0-85.0); RED CELL DISTRIBUTION WIDTH 16.9 % (11.5-14.5); WHITE BLOOD CELL 4.3 10^3/uL (4.5-11.0)
[2016-12-30 21:31] LABS: CALCIUM 8.1 mg/dL (8.4-10.5); CARBON DIOXIDE 34.8 mmol/L (20.0-32)
[2016-12-30] MEDS ORDERED: TYLENOL PO STA (21:54)
[2016-12-30] MEDS ORDERED: TYLENOL PO ONE (21:54)
--- NOTE | 2016-12-30 22:05 | ER.PDOC ---
General Chief Complaint: Chest Pain-Non Cardiac Nature Stated Complaint: CHEST PAIN Time seen by MD: 20:40 Source: patient History of Present Illness Initial Comments pt c/o headache and chest pain, just finished dialysis today and was pulled to less than dry weight Timing/Duration: 1-3 hours Severity/Quality: mild Radiation: no radiation Prior CP/Workup: Non-Cardiac Nitro Today/Relief: No Nitro Taken Today Aspirin Today: No Aspirin Today Allergies: Coded Allergies: aspirin (Verified Allergy, Unknown, 01/06/17) PT DENIES ALLERGY codeine (Verified Allergy, Unknown, 01/06/17) PT DENIES ALLERGY enoxaparin (Verified Allergy, Unknown, 01/06/17) heparin (Verified Allergy, Unknown, 01/06/17) promethazine (Verified Allergy, Unknown, 01/06/17) PT DENIES ALLERGY Home Meds Reported Medications Budesonide, Micronized (BUDESONIDE) 0.5 Gm Powder, 0.5 GM MC DAILY 02/23/16 Carvedilol 3.125MG (COREG 3.125MG) 3.125 Mg Tablet, 1 TAB PO BID, #180 TAB 1 Refill 02/23/16 Calcium Carbonate (CALCIUM) 600 Mg Tablet, 600 MG PO DAILY, TABLET 02/23/16 Budesonide/Formoterol Fumarate (SYMBICORT 160-4.5 MCG INHALER) 10.2 Gm Hfa.aer.ad, 2 PUFF IH BID, #10.6 GRAM 3 Refills 02/23/16 Atorvastatin 20MG (LIPITOR 20MG) 20 Mg Tablet, 1 TAB PO DAILY, #90 TAB 1 Refill 02/23/16 Levothyroxine Sodium (LEVOTHYROXINE SODIUM) 175 Mcg Tablet, 1 TAB PO DAILY, #30 TAB 5 Refills 02/23/16 Pantoprazole Sodium (PANTOPRAZOLE SODIUM) 40 Mg Tablet.dr, 40 MG PO DAILY 10/19/15 Albuterol Sulfate (ALBUTEROL SULFATE) 2.5 Mg/3 Ml Vial.neb, 2.5 MG IH Y for COUGH 01/27/14 Gabapentin (GABAPENTIN) 100 Mg Capsule, 300 MG PO BID, CAPSULE 08/29/13 Past Medical History Medical History: congestive heart failure, COPD, hypertension, renal disease Surgical History: appendectomy Family History Significant Family History: no pertinent family hx Social History Smoking: non-smoker Alcohol Use: none Drug Use: none Constitutional: no symptoms reported EENTM: no symptoms reported Respiratory: no symptoms reported Cardiovascular: see HPI, chest pain Gastrointestinal: no symptoms reported Genitourinary: no symptoms reported Musculoskeletal: no symptoms reported Skin: no symptoms reported Psychiatric/Neurological: see HPI, headache Endocrine: no symptoms reported Hematologic/Lymphatic: no symptoms reported All Other Systems: Reviewed and Negative Physical Exam General Appearance: Mild Distress HEENT: PERRL/EOMI, Normal ENT Inspection, TMs Normal, Pharynx Normal Neck: Non-Tender, Full Range of Motion, Supple, Normal Inspection Respiratory: chest non-tender, lungs clear, normal breath sounds, no respiratory distress, no accessory muscle use Cardiovascular: Normal Peripheral Pulses, Regular Rate, Rhythm, No Edema, No Gallop, No JVD, No Murmur Gastrointestinal: Normal Bowel Sounds, No Organomegaly, No Pulsatile Mass, Non Tender, Soft Extremities: Normal Range of Motion, Non-Tender, Normal Inspection, No Pedal Edema, No Calf Tenderness, Normal Capillary Refill Additional Procedures Progress after verbal consent, 2 cotton tip applicators were soaked with1 ml 0.5% marcaine. one each was inserted into the retronasal area to effect a sphenopalatine ganglion block. pt reports mild relief Results/Orders Results/Orders Laboratory Tests Test 12/30/16 20:55 White Blood Count 4.3 10^3/uL (4.5-11.0) Red Blood Count 3.29 10^6/uL (4.50-5.90) Hemoglobin 9.8 g/dL (13.9-16.3) Hematocrit 30.1 % (37.0-53.0) Mean Corpuscular Volume 91.5 fL (78-100) Mean Corpuscular Hemoglobin 29.8 pg (26-34) Mean Corpuscular Hemoglobin Concent 32.6 g/dL (33-37) Red Cell Distribution Width 16.9 % (11.5-14.5) Platelet Count 90 10^3/uL (150-400) Mean Platelet Volume 8.6 fL (7.8-11.0) Neutrophils (%) (Auto) 74.9 % (41.0-85.0) Lymphocytes (%) (Auto) 9.7 % (24.0-44.0) Monocytes (%) (Auto) 12.8 % (5.0-12.0) Neutrophils # (Auto) 3.2 10^3/uL (1.8-7.7) Lymphocytes # (Auto) 0.4 10^3/uL (1.0-4.8) Monocytes # (Auto) 0.6 10^3/uL (0.3-0.8) Absolute Immature Granulocyte (auto 0.01 10^3 u/L (0-2) Eosinophils % 1.9 % (0.0-5.0) Basophils % 0.5 % (0.0-0.2) Basophils # 0.0 10^3/uL (0.0-0.1) Eosinophil Count 0.1 10^3/uL (0.0-0.2) Prothrombin Time 11.1 SEC (9.8-11.9) Prothrombin Time INR (Non-Therap) 1.0 Activated Partial Thromboplast Time 29.4 SEC (24.67-30.72) Sodium Level 142 mmol/L (132-145) Potassium Level 3.5 mmol/L (3.6-5.2) Chloride Level 100.0 mmol/L (96-109) Carbon Dioxide Level 34.8 mmol/L (20.0-32) Anion Gap 10.7 Blood Urea Nitrogen 14 mg/dL (7-18) Creatinine 3.28 mg/dL (0.59-1.40) Estimated GFR () 24.8 (>/=60) BUN/Creatinine Ratio 4.0 Glucose Level 80 mg/dL (70-110) Calcium Level 8.1 mg/dL (8.4-10.5) Total Bilirubin 1.5 mg/dL (0.2-1.0) Aspartate Amino Transf (AST/SGOT) 24 U/L (0-35) Alanine Aminotransferase (ALT/SGPT) 18 U/L (12-78) Alkaline Phosphatase 180 U/L (50-136) Troponin I 0.03 ng/mL (0.00-0.05) Pro-B-Type Natriuretic Peptide 09424 pg/mL (0-125) Total Protein 7.1 g/dL (6.4-8.2) Albumin 3.6 g/dL (3.4-5.0) Globulin 3.5 Percent Immature Gran (Cell Imm) 0.20 % (0.00-0.50) Progress Progress mild improvement with tylenol , sphenopalatine block EKG/XRAY/CT/US EKG Comments: sinus tachycardia Departure Time of Disposition: 22:20 Disposition: 01 HOME, SELF-CARE Impression: Primary Impression: Abdominal pain Additional Impressions: ESRD (end stage renal disease) on dialysis Acute headache Condition: Stable Referrals: ALIREZA PAUL CUSTOMER ORDER CLERK (PCP) PRIMARY CARE PROVIDER Problem Qualifiers Primary Impression: Abdominal pain Abdominal location: unspecified location Qualified Codes: R10.9 - Unspecified abdominal pain Additional Impressions: Acute headache Headache type: unspecified Intractability: not intractable Qualified Codes : R51 - Headache OLIVER SHAFFER MD Dec 30, 2016 22:04
--- NOTE | 2016-12-30 22:15 | NUR ---
PAIN MEDS REQUESTED PAIN SHOT PATIENT. REQUEST DENIED AT THIS TIME BY EDP
--- NOTE | 2016-12-30 22:35 | NUR ---
[facility] CALLED FOR PATIENT RIDE ([phone] JOSE A) SHE WILL COME PICK PATIENT UP.
[2016-12-30 22:54] VITALS: BP 173/113
== END 2016-12-30 22:50 | disposition home or self-care (01) ==
LOC: ER 20:23
DX: R51 Headache (principal); R10.9 Unspecified abdominal pain; R07.9 Chest pain, unspecified; I13.2 Hypertensive heart and chronic kidney disease with heart failure and with stage 5 chronic kidney disease, or end stage renal disease; I50.9 Heart failure, unspecified; N18.6 End stage renal disease; J44.9 Chronic obstructive pulmonary disease, unspecified; Z90.49 Acquired absence of other specified parts of digestive tract; Z99.2 Dependence on renal dialysis; Z79.899 Other long term (current) drug therapy; Z88.8 Allergy status to other drugs, medicaments and biological substances
CPT/HCPCS: 36415; 80053; 83880; 84484; 85025; 85610; 93005; 99285

== ENCOUNTER 2017-01-03 19:07 | Emergency (ER) | payer MEDICARE, MEDICAID ==
[~2017-01-03] VITALS: Ht 180.3 cm; Wt 99.8 kg
--- NOTE | 2017-01-03 19:35 | NUR ---
DR SCHWARTZ SPOKE WITH DR. SCHWARTZ ABOUT TRANSFER
--- NOTE | 2017-01-03 19:36 | NUR ---
[facility] ON PHONE WITH [facility] FOR TRANSFER
--- NOTE | 2017-01-03 19:39 | NUR ---
DR TYSON MEHTA WITH [facility] WILL BE ACCEPTING PATIENT
--- NOTE | 2017-01-03 19:51 | ER.PDOC ---
General Chief Complaint: Dyspnea/Respdistress Stated Complaint: MISSED TWO OF OF DIALYISIS TREATMENT Time seen by MD: 19:46 Source: patient Exam Limitations: no limitations History of Present Illness Initial Comments Difficulty breathing, missed 2 sessions of dialysis Severity: moderate Prior Episodes/Possible Cause: frequent episodes, chronic episodes Associated Symptoms: edema Prior symptoms/Treatment: Similar symptoms previous Allergies: Coded Allergies: aspirin (Verified Allergy, Unknown, 03/17/16) codeine (Verified Allergy, Unknown, 03/17/16) enoxaparin (Verified Allergy, Unknown, 03/17/16) heparin (Verified Allergy, Unknown, 03/17/16) promethazine (Verified Allergy, Unknown, 03/17/16) Home Meds Reported Medications Budesonide, Micronized (BUDESONIDE) 0.5 Gm Powder, 0.5 GM MC DAILY 02/23/16 Carvedilol 3.125MG (COREG 3.125MG) 3.125 Mg Tablet, 1 TAB PO BID, #180 TAB 1 Refill 02/23/16 Calcium Carbonate (CALCIUM) 600 Mg Tablet, 600 MG PO DAILY, TABLET 02/23/16 Budesonide/Formoterol Fumarate (SYMBICORT 160-4.5 MCG INHALER) 10.2 Gm Hfa.aer.ad, 2 PUFF IH BID, #10.6 GRAM 3 Refills 02/23/16 Atorvastatin 20MG (LIPITOR 20MG) 20 Mg Tablet, 1 TAB PO DAILY, #90 TAB 1 Refill 02/23/16 Levothyroxine Sodium (LEVOTHYROXINE SODIUM) 175 Mcg Tablet, 1 TAB PO DAILY, #30 TAB 5 Refills 02/23/16 Pantoprazole Sodium (PANTOPRAZOLE SODIUM) 40 Mg Tablet.dr, 40 MG PO DAILY 10/19/15 Albuterol Sulfate (ALBUTEROL SULFATE) 2.5 Mg/3 Ml Vial.neb, 2.5 MG IH Y for COUGH 01/27/14 Gabapentin (GABAPENTIN) 100 Mg Capsule, 300 MG PO BID, CAPSULE 08/29/13 Past Medical History Medical History: congestive heart failure, COPD, pulmonary embolism, renal disease Surgical History: appendectomy Social History Smoking: cigarettes Alcohol Use: none Drug Use: none Review of Systems Constitutional: no symptoms reported Respiratory: see HPI Cardiovascular: see HPI Gastrointestinal: no symptoms reported Genitourinary: no symptoms reported Musculoskeletal: no symptoms reported All Other Systems: Reviewed and Negative Physical Exam General Appearance: No Apparent Distress, WD/WN Neck: Non-Tender, Full Range of Motion Respiratory: chest non-tender, no respiratory distress, crackles Cardiovascular: Normal Peripheral Pulses, Regular Rate, Rhythm Gastrointestinal: Normal Bowel Sounds, No Organomegaly, No Pulsatile Mass, Non Tender Extremities: Normal Range of Motion, Non-Tender, Pedal Edema Neurologic/Psychiatric: 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 Javier Problem Qualifiers Primary Impression: Volume overload Hypervolemia type: unspecified Qualified Codes: E87.70 - Fluid overload, unspecified JOSUE REEVES MD Jan 03, 2017 19:51
--- NOTE | 2017-01-03 19:53 | PCM.EKG ---
[facility] Test Date: 2017-01-03 Test Time: 19:50:28 Pat Name: JUAN ZAIDI Department: Room: Gender: M Range Rider: SAJI : 1970 Requested By: JOSUE REEVES Order Number: [id number] Reading MD: Josue REEVES Measurements Intervals [place] Rate: 93 P: 22 [place]: 190 QRS: 92 QRSD: 102 T: 19 QT: 400 QTc: 497 Interpretive Statements Normal sinus rhythm Prolonged QT Abnormal ECG Compared to ECG 12/30/2016 20:36:26 Prolonged QT interval now present Sinus tachycardia no longer present T-wave abnormality no longer present Possible ischemia no longer present Electronically Signed On 01-04-2017 1:24:30 CDT by Josue REEVES Please click the below link to view image of tracing.
[2017-01-03 19:58] VITALS: BP 136/94
[2017-01-03 20:00] LABS: BASOPHIL % 0.6 % (0.0-0.2); EOSINOPHIL # 0.1 10^3/uL (0.0-0.2); EOSINOPHIL % 3.2 % (0.0-5.0); HEMOGLOBIN 8.4 g/dL (13.9-16.3); LYMPHOCYTES # 0.6 10^3/uL (1.0-4.8); LYMPHOCYTES % 16.9 % (24.0-44.0); MEAN CELL HGB 29.7 pg (26-34); MEAN CELL HGB CONCENTRATION 31.2 g/dL (33-37); MEAN CORP VOLUME 95.1 fL (78-100); MEAN PLATELET VOLUME 9.4 fL (7.8-11.0); MONOCYTES # 0.3 10^3/uL (0.3-0.8); MONOCYTES % 8.7 % (5.0-12.0); NEUTROPHIL # 2.4 10^3/uL (1.8-7.7); NEUTROPHILS % 70.6 % (41.0-85.0); RED CELL DISTRIBUTION WIDTH 16.9 % (11.5-14.5); WHITE BLOOD CELL 3.4 10^3/uL (4.5-11.0)
--- NOTE | 2017-01-03 20:02 | NUR ---
REPORT REPORT GIVEN TO JULIA LAWLERMOTION PICTURE [facility]
--- NOTE | 2017-01-03 20:10 | NUR ---
REPORT TO EMS REPORT GIVEN TO OTIS,JUNIOR TECHNICAL WRITER
--- NOTE | 2017-01-03 20:19 | DIREP ---
PROCEDURE:CHEST 1 VIEW COMPARISON:[facility], CR, XRAY CHEST SINGLE VW, 12/27/2016, 01:51 PM. INDICATIONS:chest pain FINDINGS: LUNGS/PLEURA:Increased interstitial markings in the lungs. VASCULATURE:Mildly increased pulmonary vasculature. CARDIAC:Mild cardiomegaly. MEDIASTINUM:Normal. No visible mass or adenopathy. BONES:Normal. No fracture or visible bony lesion. OTHER:Right IJ central venous catheter with tip in the mid SVC. CONCLUSION: 1. CHF pattern for with interstitial edema 2. Right IJ vascular catheter unchanged. Dictated by: David Hudson M.D. on 01/03/2017 at 08:17 PM
[2017-01-03 20:28] LABS: CALCIUM 7.6 mg/dL (8.4-10.5); CARBON DIOXIDE 28.9 mmol/L (20.0-32)
== END 2017-01-03 20:10 | disposition short-term general hospital (02) ==
LOC: ER 19:07
DX: E87.70 Fluid overload, unspecified (principal); I50.9 Heart failure, unspecified; J44.9 Chronic obstructive pulmonary disease, unspecified; N18.6 End stage renal disease; F17.210 Nicotine dependence, cigarettes, uncomplicated; Z91.15 Patient's noncompliance with renal dialysis; Z90.49 Acquired absence of other specified parts of digestive tract; Z99.2 Dependence on renal dialysis; Z88.6 Allergy status to analgesic agent; Z88.5 Allergy status to narcotic agent; Z88.8 Allergy status to other drugs, medicaments and biological substances; Z79.899 Other long term (current) drug therapy
CPT/HCPCS: 36415; 71010; 80053; 82550; 82553; 83880; 84484; 85025; 93005; 99285

== ENCOUNTER 2017-01-06 18:26 | Emergency (ER) | payer MEDICARE, MEDICAID ==
[~2017-01-06] VITALS: Ht 180.3 cm; Wt 99.8 kg
--- NOTE | 2017-01-06 18:39 | NUR ---
DIALYSIS PT REPORTED HE HAD DIALYSIS TODAY BEFORE DISCHARGE FROM [facility].
--- NOTE | 2017-01-06 18:44 | NUR ---
PT SITTING IN WHEELCHAIR, RESP EVEN AND UNLABORED, PT STATES HIS PORTABLE OXYGEN BOTTLES ARE EMPTY, HAS CONCENTRATOR BUT HAS NO WHERE TO PLUG IT IN, DENIES ANY OTHER CONCERNS
--- NOTE | 2017-01-06 18:57 | NUR ---
PT ARGUMENTATIVE WITH PLAN OF CARE, WHEN ASKED QUESTIONS ABOUT HOW TO HELP HIM WITH HIS TRANSPORTATION AND OXYGEN NEEDS, PT BEGAN YELLING "I DON'T KNOW WHAT TO DO, DO WHAT YOU WANT" REPEATING THAT [facility] THREW HIM OUT AND THAT HE DOESN'T KNOW ANYONE IN [place] TO COME GET HIM, AND HE DOESN'T KNOW THE ADDRESS OF WHERE THE TRANSPORTATION SERVICE WAS TAKING HIM [place], JUST KNOWS THAT A TODD NAMED [facility] LIVES THERE AND DOESN'T KNOW IF [facility] WILL LET HIM STAY THERE EVEN IF WE FIND THE ADDRESS.
--- NOTE | 2017-01-06 18:59 | ER.PDOC ---
General Chief Complaint: Dyspnea/Respdistress Stated Complaint: DIFFICULTY BREATHING TRAVEL OUT OF US: No Time seen by MD: 18:40 Source: patient Exam Limitations: no limitations History of Present Illness Initial Comments Patient discharged from [place] today, but his Oxygen tank ran out before he could get home. He has a concentrator at home. Thus only needs a good O2 Tank and a ride home. He does not request any other intervention. Timing/Duration: unsure Severity: moderate Associated Symptoms: shortness of breath Allergies: Coded Allergies: aspirin (Verified Allergy, Unknown, 01/06/17) PT DENIES ALLERGY codeine (Verified Allergy, Unknown, 01/06/17) PT DENIES ALLERGY enoxaparin (Verified Allergy, Unknown, 01/06/17) heparin (Verified Allergy, Unknown, 01/06/17) promethazine (Verified Allergy, Unknown, 01/06/17) PT DENIES ALLERGY Home Meds Reported Medications Budesonide, Micronized (BUDESONIDE) 0.5 Gm Powder, 0.5 GM MC DAILY 02/23/16 Carvedilol 3.125MG (COREG 3.125MG) 3.125 Mg Tablet, 1 TAB PO BID, #180 TAB 1 Refill 02/23/16 Calcium Carbonate (CALCIUM) 600 Mg Tablet, 600 MG PO DAILY, TABLET 02/23/16 Budesonide/Formoterol Fumarate (SYMBICORT 160-4.5 MCG INHALER) 10.2 Gm Hfa.aer.ad, 2 PUFF IH BID, #10.6 GRAM 3 Refills 02/23/16 Atorvastatin 20MG (LIPITOR 20MG) 20 Mg Tablet, 1 TAB PO DAILY, #90 TAB 1 Refill 02/23/16 Levothyroxine Sodium (LEVOTHYROXINE SODIUM) 175 Mcg Tablet, 1 TAB PO DAILY, #30 TAB 5 Refills 02/23/16 Pantoprazole Sodium (PANTOPRAZOLE SODIUM) 40 Mg Tablet.dr, 40 MG PO DAILY 10/19/15 Albuterol Sulfate (ALBUTEROL SULFATE) 2.5 Mg/3 Ml Vial.neb, 2.5 MG IH Y for COUGH 01/27/14 Gabapentin (GABAPENTIN) 100 Mg Capsule, 300 MG PO BID, CAPSULE 08/29/13 Past Medical History Medical History: COPD, hypertension, renal disease Surgical History: appendectomy Social History Smoking: non-smoker Alcohol Use: none Drug Use: none Reviewed Nursing Reviewed: Vital Signs, Abn. 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
--- NOTE | 2017-01-06 19:24 | NUR ---
DISCHARGE PT SITTING IN WHEELCHAIR. O2 NC 4L, RESP EVEN AND UNLABORED, DISCHARGE INSTRUCTIONS DISCUSSED. PT VERBALIZED UNDERSTANDING. PT'S CELL PHONE HAS BEEN CHARGING FOR APPROX 45 MINUTES. PT ENCOURAGED TO LET STAFF KNOW WHEN HE HAS ARRANGED FOR TRANSPORTATION AND OR WANTS ASSISTANCE WITH TRANSPORTATION OR OTHER CONCERNS. PT STATED THAT WHEN HIS PHONE CHARGES SOME MORE HE WILL TRY AND CALL SOMEONE.
--- NOTE | 2017-01-06 20:59 | NUR ---
PT CONTINUES SLEEPING IN ER RM 2. RESP EVEN AND UNLABORED.
--- NOTE | 2017-01-06 21:48 | NUR ---
PT AWAKE, PT ASKED IF HE WAS ABLE TO GET AHOLD OF ANYONE FOR TRANSPORTATION OR IF I COULD HELP HIM WITH ANYTHING, PT REPLIED THAT HE WAS FIXING TO CALL SOMEONE, PT HAD HIS CELL PHONE IN HIS HAND. PT TRANSFERRED TO STRETCHER FOR REPOSITIONING. DENIES ANY OTHER CONCERNS.
--- NOTE | 2017-01-06 22:32 | NUR ---
PT RESTING, RESP EVEN AND UNLABORED.
--- NOTE | 2017-01-07 00:49 | NUR ---
PT SLEEPING, RESP EVEN AND UNLABORED, PT REPOSITIONS HIMSELF TO POSITION OF COMFORT. NO NEEDS OR CONCERNS VOICED.
[2017-01-07 03:09] VITALS: BP 119/60
--- NOTE | 2017-01-07 03:10 | NUR ---
PT RESTING, RESP EVEN AND UNLABORED. REPOSITIONS HIMSELF TO POSITION OF COMFORT.
--- NOTE | 2017-01-07 03:16 | NUR ---
PT SITTING UP, YELLING OUT, PT'S CONCERNS DISCUSSED. PT ENCOURAGED TO FIND TRANSPORTATION. PT USING CELL PHONE TO ATTEMPT TO LOCATE TRANSPORTATION.
--- NOTE | 2017-01-07 03:36 | NUR ---
STATUS PT STATED THAT HE IS TRYING TO CALL SOMEONE, AND IS RESTING AGAIN.
--- NOTE | 2017-01-07 03:48 | NUR ---
PT TALKING ON PHONE LOUDLY
--- NOTE | 2017-01-07 04:06 | NUR ---
PT TALKING ON PHONE
--- NOTE | 2017-01-07 04:14 | NUR ---
STATUS WHEN ASKED IF HE WAS ABLE TO GET AHOLD OF ANYONE, PT REPLIED THAT NO HE HADN'T. PT ARGUMENTATIVE THAT WE WERE JUST THROWING HIM OUT IN THE COLD WITH NO PLACE TO GO AND THAT WE HADN'T DONE ANYTHING FOR HIM. PT CONCERNS DISCUSSED. PT'S PLANS WHEN HE CAME TO [place] DISCUSSED. PT YELLING THAT HE HAS A CAR AND A PLACE TO STAY. WHEN ASKED AGAIN THE ADDRESS OF THE PLACE HE PLANNED TO STAY AT WHEN HE LEFT [place] WITH THE [employer], PT YELLING "I ALREADY GAVE IT TO YOU", PT ADVISED THAT I DID NOT HAVE THE ADDRESS, PT THEN LOUDLY STATING THAT THE [employer] DO.
--- NOTE | 2017-01-07 04:22 | NUR ---
JOANNA FLORES, CONTACTED REQUESTED BY PT, NO ANSWER, LEFT MESSAGE ON ANSWERING MACHINE FOR CALL BACK.
--- NOTE | 2017-01-07 04:35 | NUR ---
PT TO LOBBY VIA WC, WITH PORTABLE O2 TANK, O2 PER NC AT 4L, PT IN LOBBY SITTING IN WHEELCHAIR, ENCOURAGED TO LET STAFF KNOW IF HE NEEDS ANY ASSISTANCE.
--- NOTE | 2017-01-07 07:58 | NUR ---
STATUS PATIENT REMAINS IN WAITING. NEW O2 TANK GIVEN TO PATIENT, NO RESP DISTRESS NOTED. WHEN ASKED IF THERE WAS SOMEONE WE COULD CALL TO GIVE HIM A RIDE HOME OR TO DIALYSIS PATIENT BECOMES AGGITATED. OFFERED TO CALL TRANSIT, PATIENT REFUSED TRANSIT. BRIGHT WITH HAND STRAIGHTENER CALLED TO ASSIST WITH PATIENT TRANSPORTATION TO HOME OR DIALYSIS.
== END 2017-01-06 19:24 | disposition home or self-care (01) ==
LOC: ER 18:26
DX: N19 Unspecified kidney failure (principal); R06.02 Shortness of breath; I10 Essential (primary) hypertension; J44.9 Chronic obstructive pulmonary disease, unspecified; Z90.49 Acquired absence of other specified parts of digestive tract
CPT/HCPCS: 99283

== ENCOUNTER 2017-01-08 02:52 | Emergency (ER) | payer MEDICARE, MEDICAID ==
[~2017-01-08] VITALS: Ht 177.8 cm; Wt 113.4 kg
--- NOTE | 2017-01-08 03:02 | NUR ---
ARRIVAL UPON ARRIVAL PT WAS SCREAMING AT STAFF CALLING EVERYONE "FUCKING IDIOTS". TRYING TO GET THE PT INTO THE WHEELCHAIR TO TAKE HIM INSIDE PT STARTED YELLING "CALL THE [facility] TELEPHONE CLERK YOU IDIOTS." SEVERAL STAFF MEMBERS ACCOMPANIED THE PT INTO THE ER. ONCE IN ER 5 THE PT RESISTED GETTING ONTO THE STRETCHER. GETTING THE PT ONTO THE STRETCHER THE POLICE WARNED HIM TO COOPERATE WITH STAFF.
--- NOTE | 2017-01-08 03:03 | NUR ---
EDP THE EDP ENTERED THE ROOM TO ASSESS THE PT. THE PT REFUSED TO TELL THE EDP ANY HISTORY. THE EDP TOLD THE PT THAT ONCE HE DECIDED TO TALK THE EDP WOULD BE BACK. THE PT BEGAN TO YELL.
--- NOTE | 2017-01-08 03:05 | NUR ---
TEMP & LABS IN ATTEMPT TO GET LABS AND A TEMPERATURE THE PT STARTED YELLING AT STAFF AND CALLING EVERYONE "BITCH". HE THEN PROCEEDED TO CALL THE ENTIRE STAFF "LIARS AND BITCHES".
[2017-01-08 03:18] VITALS: BP 147/82
--- NOTE | 2017-01-08 03:24 | NUR ---
BLANKET OFFERED PT WARM BLANKET. PT REFUSED AND STATED "I WANT MY SON TO COME HERE SO I CAN GO."
--- NOTE | 2017-01-08 03:32 | NUR ---
AMA PT REFUSED TO STAY AND REFUSED TO SIGN AMA PAPERS. AFTER MULTIPLE ATTEMPTS OF ALL INTERVENTIONS PT REFUSED EVERY ATTEMPT. UPON DISCHARGE PT CAOX4. VITALS STABLE UPON DISCHARGE.
--- NOTE | 2017-01-08 03:36 | NUR ---
DISCHARGE DUE TO BEHAVIOR & AGITATION HAD SUPERVISOR CORE DRILLING PT TO VIA WHEELCHAIR TO VEHICLE. PT CONTINUED TO VERBALLY ABUSE STAFF CALLING SECURITY A "FAGGOT" AND THE REST OF THE STAFF "IDIOTS".
== END 2017-01-08 03:35 | disposition left against medical advice (07) ==
LOC: ER 02:52
DX: R10.9 Unspecified abdominal pain (principal); Z53.21 Procedure and treatment not carried out due to patient leaving prior to being seen by health care provider
CPT/HCPCS: 99281

== ENCOUNTER 2017-01-08 20:35 | Emergency (ER) | payer MEDICARE, MEDICAID ==
[~2017-01-08] VITALS: Ht 180.3 cm; Wt 99.8 kg
--- NOTE | 2017-01-08 21:09 | NUR ---
police department called police department , unable to get patients concentrator, patient states he doess not know sons of sisters address
--- NOTE | 2017-01-08 21:32 | ER.PDOC ---
General Chief Complaint: Dyspnea/Respdistress Stated Complaint: LOW 02 TRAVEL OUT OF US: No Time seen by MD: 21:25 Source: patient Exam Limitations: no limitations History of Present Illness Initial Comments Low Oxygen while at [facility]. He did not have his Oxygen concentrator Timing/Duration: 1 hour Associated Symptoms: shortness of breath Allergies: Coded Allergies: aspirin (Verified Allergy, Unknown, 01/06/17) PT DENIES ALLERGY codeine (Verified Allergy, Unknown, 01/06/17) PT DENIES ALLERGY enoxaparin (Verified Allergy, Unknown, 01/06/17) heparin (Verified Allergy, Unknown, 01/06/17) promethazine (Verified Allergy, Unknown, 01/06/17) PT DENIES ALLERGY Home Meds Reported Medications Budesonide, Micronized (BUDESONIDE) 0.5 Gm Powder, 0.5 GM MC DAILY 02/23/16 Carvedilol 3.125MG (COREG 3.125MG) 3.125 Mg Tablet, 1 TAB PO BID, #180 TAB 1 Refill 02/23/16 Calcium Carbonate (CALCIUM) 600 Mg Tablet, 600 MG PO DAILY, TABLET 02/23/16 Budesonide/Formoterol Fumarate (SYMBICORT 160-4.5 MCG INHALER) 10.2 Gm Hfa.aer.ad, 2 PUFF IH BID, #10.6 GRAM 3 Refills 02/23/16 Atorvastatin 20MG (LIPITOR 20MG) 20 Mg Tablet, 1 TAB PO DAILY, #90 TAB 1 Refill 02/23/16 Levothyroxine Sodium (LEVOTHYROXINE SODIUM) 175 Mcg Tablet, 1 TAB PO DAILY, #30 TAB 5 Refills 02/23/16 Pantoprazole Sodium (PANTOPRAZOLE SODIUM) 40 Mg Tablet.dr, 40 MG PO DAILY 10/19/15 Albuterol Sulfate (ALBUTEROL SULFATE) 2.5 Mg/3 Ml Vial.neb, 2.5 MG IH Y for COUGH 01/27/14 Gabapentin (GABAPENTIN) 100 Mg Capsule, 300 MG PO BID, CAPSULE 08/29/13 Past Medical History Medical History: diabetes, hypertension, renal disease Surgical History: appendectomy Social History Drug Use: Meth Review of Systems Constitutional: no symptoms reported Respiratory: see HPI Cardiovascular: no symptoms reported Gastrointestinal: no symptoms reported Musculoskeletal: no symptoms reported All Other Systems: Reviewed and Negative Physical Exam General Appearance: No Apparent Distress, WD/WN Respiratory: chest non-tender, lungs clear, normal breath sounds, no respiratory distress CVS: reg rate & rhythm, no murmur, no gallop, pulses nml Gastrointestinal: Normal Bowel Sounds, No Organomegaly, No Pulsatile Mass, Non Tender Back: Normal Inspection Extremities: Normal Range of Motion, Non-Tender, Normal Inspection Neurologic/Psychiatric: java 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 Departure Time of Disposition: 22:15 Disposition: 01 HOME, SELF-CARE Impression: Primary Impression: Hypoxia Condition: Improved Referrals: PCP,UNKNOWN (PCP) PRIMARY CARE PROVIDER Additional Instructions: F/U with your PCP as needed JOSUE REEVES MD Jan 08, 2017 21:32
--- NOTE | 2017-01-08 21:37 | NUR ---
[facility] de[facility] will go to patient house to get concentrator
--- NOTE | 2017-01-08 22:16 | NUR ---
discharge patient unable to reach sister , dicharged to waiting room with oxygen concentrator
--- NOTE | 2017-01-08 22:27 | NUR ---
departed at [phone] to waiting room
[2017-01-08 23:17] VITALS: BP 126/81
--- NOTE | 2017-01-09 09:00 | NUR ---
Breakfast Patient in lobby waiting for a ride, Brought patient breakfast. Patient stable at this time.
--- NOTE | 2017-01-09 13:30 | NUR ---
Lunch Patient in lobby still waiting on a ride. Brought patient lunch. Patient is stable at this time.
== END 2017-01-08 23:02 | disposition home or self-care (01) ==
LOC: ER 20:35 → EDBD 20:35 → ER 23:02
DX: R09.02 Hypoxemia (principal); E11.9 Type 2 diabetes mellitus without complications; I10 Essential (primary) hypertension; F15.10 Other stimulant abuse, uncomplicated; Z90.49 Acquired absence of other specified parts of digestive tract; Z88.6 Allergy status to analgesic agent
CPT/HCPCS: 99283

== ENCOUNTER 2017-01-09 22:18 | Emergency (ER) | payer MEDICARE, MEDICAID ==
[~2017-01-09] VITALS: Ht 157.5 cm; Wt 77.6 kg
--- NOTE | 2017-01-10 00:55 | NUR ---
ELOPED DR SHAFFER EXAMINED PATIENT , PATEINT BECAME UPSET AND ELOPED TO WAITING ROOM ,AWAITING RIDE
--- NOTE | 2017-01-10 00:56 | ER.PDOC ---
General Chief Complaint: General Complaint Stated Complaint: MALE Time seen by MD: 00:32 Source: patient History of Present Illness Initial Comments pt returns having been discharged 2 nights ago. he complains of RLQ abdominal pain of 4 days duration. he has had previous CT scan of abdomen which was negative, he also complains of abrasion on the lateral aspect of his penis. there is complaint of boils about his perineum. Timing/Duration: other (4 days) Radiation: no radiation Exacerbated by: walking Allergies: Coded Allergies: aspirin (Verified Allergy, Unknown, 01/06/17) PT DENIES ALLERGY codeine (Verified Allergy, Unknown, 01/06/17) PT DENIES ALLERGY enoxaparin (Verified Allergy, Unknown, 01/06/17) heparin (Verified Allergy, Unknown, 01/06/17) promethazine (Verified Allergy, Unknown, 01/06/17) PT DENIES ALLERGY Home Meds Reported Medications Budesonide, Micronized (BUDESONIDE) 0.5 Gm Powder, 0.5 GM MC DAILY 02/23/16 Carvedilol 3.125MG (COREG 3.125MG) 3.125 Mg Tablet, 1 TAB PO BID, #180 TAB 1 Refill 02/23/16 Calcium Carbonate (CALCIUM) 600 Mg Tablet, 600 MG PO DAILY, TABLET 02/23/16 Budesonide/Formoterol Fumarate (SYMBICORT 160-4.5 MCG INHALER) 10.2 Gm Hfa.aer.ad, 2 PUFF IH BID, #10.6 GRAM 3 Refills 02/23/16 Atorvastatin 20MG (LIPITOR 20MG) 20 Mg Tablet, 1 TAB PO DAILY, #90 TAB 1 Refill 02/23/16 Levothyroxine Sodium (LEVOTHYROXINE SODIUM) 175 Mcg Tablet, 1 TAB PO DAILY, #30 TAB 5 Refills 02/23/16 Pantoprazole Sodium (PANTOPRAZOLE SODIUM) 40 Mg Tablet.dr, 40 MG PO DAILY 10/19/15 Albuterol Sulfate (ALBUTEROL SULFATE) 2.5 Mg/3 Ml Vial.neb, 2.5 MG IH Y for COUGH 01/27/14 Gabapentin (GABAPENTIN) 100 Mg Capsule, 300 MG PO BID, CAPSULE 08/29/13 Vital Signs First Vital Signs Date Time Temp Pulse Resp B/P (MAP) Pulse Ox O2 Delivery O2 Flow Rate FiO2 01/09/17 22:46 98.3 92 18 95 01/09/17 22:53 165/107 (126) Last Vital Signs Date Time Temp Pulse Resp B/P (MAP) Pulse Ox O2 Delivery O2 Flow Rate FiO2 01/09/17 22:53 98.3 7 18 165/107 (126) 95 Past Medical History Medical History: cardiac problems, COPD, hypertension, renal disease, other Surgical History: appendectomy, other Social History Smoking: non-smoker Alcohol Use: none Drug Use: Meth Reviewed Nursing Reviewed: Vital Signs, Abn. Noted, Nursing Assessment Constitutional: no symptoms reported EENTM: no symptoms reported Respiratory: no symptoms reported Cardiovascular: no symptoms reported Gastrointestinal: see HPI, other (boils about his anus) Genitourinary: see HPI, other (abrasion on shaft of his ppenis) Musculoskeletal: no symptoms reported Skin: no symptoms reported Psychiatric/Neurological: no symptoms reported Endocrine: no symptoms reported Hematologic/Lymphatic: no symptoms reported Physical Exam General Appearance: No Apparent Distress HEENT: PERRL/EOMI, Normal ENT Inspection, TMs Normal, Pharynx Normal Neck: Non-Tender, Full Range of Motion, Supple, Normal Inspection Respiratory: chest non-tender, lungs clear, normal breath sounds, no respiratory distress, no accessory muscle use Cardiovascular: Normal Peripheral Pulses, Regular Rate, Rhythm, No Edema, No Gallop, No JVD, No Murmur Gastrointestinal: Normal Bowel Sounds, No Pulsatile Mass, Non Tender Rectal: Normal Exam, Normal Rectal Tone Extremities: Normal Range of Motion, Non-Tender, Normal Inspection, No Pedal Edema, No Calf Tenderness, Normal Capillary Refill, Pelvis Stable Progress Progress explained that he has had this investigated before, CT scan of his abd/pelvis revealed no RLQ pathology. the boils are all hardened area w/out fluctuance There are no new complaints to which we have not addressed, there are secondary gain issues to continues to present to ED as he is homeless and he sleeps in the lobby Course Blood Pressure Systolic: 165 Blood Pressure Diastolic: 107 Blood Pressure Mean: 126 Departure Time of Disposition: 01:00 Disposition: 01 HOME, SELF-CARE Impression: Primary Impression: Abdominal wall pain in right lower quadrant Condition: Stable Referrals: PCP,UNKNOWN (PCP) PRIMARY CARE PROVIDER OLIVER SHAFFER MD Jan 10, 2017 00:56
[2017-01-10 01:18] VITALS: BP 165/107
== END 2017-01-10 00:55 | disposition home or self-care (01) ==
LOC: ER 22:18
DX: R10.31 Right lower quadrant pain (principal); S30.812A Abrasion of penis, initial encounter; L02.225 Furuncle of perineum; I10 Essential (primary) hypertension; J44.9 Chronic obstructive pulmonary disease, unspecified; F15.10 Other stimulant abuse, uncomplicated; Z88.6 Allergy status to analgesic agent; Z88.8 Allergy status to other drugs, medicaments and biological substances; X58.XXXA Exposure to other specified factors, initial encounter; Y93.89 Activity, other specified; Y92.89 Other specified places as the place of occurrence of the external cause; Y99.8 Other external cause status
CPT/HCPCS: 99283

== ENCOUNTER 2017-01-12 18:16 | Emergency (ER) | payer MEDICARE, MEDICAID ==
[~2017-01-12] VITALS: Ht 180.3 cm; Wt 99.8 kg
--- NOTE | 2017-01-12 18:56 | ER.PDOC ---
General Chief Complaint: Abdomen Pain Stated Complaint: RLQ PAIN Time seen by MD: 18:51 Source: patient Exam Limitations: other (Patient has recurrent visit to ER for various pain medication needs) History of Present Illness Initial Comments 46 year old white male with PMH significant for ESRD, on chronic regular HD treatment comes in for right lower quadrant pain. Persistent according to patient and had a normal CT of the abdomen less than a week ago. No fever, no chills. Tolerating po intake. moving bowels well. Severity/Quality: moderate Radiation: RLQ Associated Symptoms: back pain Exacerbated by: movements Relieved By: nothing Allergies: Coded Allergies: aspirin (Verified Allergy, Unknown, 01/06/17) PT DENIES ALLERGY codeine (Verified Allergy, Unknown, 01/06/17) PT DENIES ALLERGY enoxaparin (Verified Allergy, Unknown, 01/06/17) heparin (Verified Allergy, Unknown, 01/06/17) promethazine (Verified Allergy, Unknown, 01/06/17) PT DENIES ALLERGY Home Meds Reported Medications Budesonide, Micronized (BUDESONIDE) 0.5 Gm Powder, 0.5 GM MC DAILY 02/23/16 Carvedilol 3.125MG (COREG 3.125MG) 3.125 Mg Tablet, 1 TAB PO BID, #180 TAB 1 Refill 02/23/16 Calcium Carbonate (CALCIUM) 600 Mg Tablet, 600 MG PO DAILY, TABLET 02/23/16 Budesonide/Formoterol Fumarate (SYMBICORT 160-4.5 MCG INHALER) 10.2 Gm Hfa.aer.ad, 2 PUFF IH BID, #10.6 GRAM 3 Refills 02/23/16 Atorvastatin 20MG (LIPITOR 20MG) 20 Mg Tablet, 1 TAB PO DAILY, #90 TAB 1 Refill 02/23/16 Levothyroxine Sodium (LEVOTHYROXINE SODIUM) 175 Mcg Tablet, 1 TAB PO DAILY, #30 TAB 5 Refills 02/23/16 Pantoprazole Sodium (PANTOPRAZOLE SODIUM) 40 Mg Tablet.dr, 40 MG PO DAILY 10/19/15 Albuterol Sulfate (ALBUTEROL SULFATE) 2.5 Mg/3 Ml Vial.neb, 2.5 MG IH Y for COUGH 01/27/14 Gabapentin (GABAPENTIN) 100 Mg Capsule, 300 MG PO BID, CAPSULE 08/29/13 Vital Signs First Vital Signs Date Time Temp Pulse Resp B/P (MAP) Pulse Ox O2 Delivery O2 Flow Rate FiO2 01/12/17 18:17 98.5 01/12/17 18:22 86 20 166/100 (122) 80 Last Vital Signs Date Time Temp Pulse Resp B/P (MAP) Pulse Ox O2 Delivery O2 Flow Rate FiO2 01/12/17 18:22 98.5 86 20 166/100 (122) 80 Past Medical History Medical History: other (esrd) Surgical History: appendectomy, other Social History Smoking: non-smoker Alcohol Use: none Drug Use: none Constitutional: other (feels overloaded. Missed his dialysis treatment ) EENTM: no symptoms reported Respiratory: shortness of breath Cardiovascular: no symptoms reported Gastrointestinal: see HPI Genitourinary: other (anuric) Musculoskeletal: no symptoms reported Skin: no symptoms reported Psychiatric/Neurological: anxiety, depressed Endocrine: no symptoms reported Physical Exam General Appearance: No Apparent Distress, WD/WN HEENT: PERRL/EOMI, Normal ENT Inspection, TMs Normal, Pharynx Normal Neck: Non-Tender, Full Range of Motion, Supple, Normal Inspection Respiratory: chest non-tender, decreased breath sounds, crackles Cardiovascular: Normal Peripheral Pulses, Regular Rate, Rhythm, No Edema Gastrointestinal: Normal Bowel Sounds, Soft (tender LLQ. Response to physical maneuver appears exaggerated) Back: Normal Inspection, No CVA Tenderness, No Vertebral Tenderness Extremities: Pedal Edema Progress Progress Advised that since CT scan less than a week ago was normal so we don't need to repeat it tonight considering that he is tolerating po intake without fever. Course Blood Pressure Systolic: 166 Blood Pressure Diastolic: 100 Blood Pressure Mean: 122 Departure Time of Disposition: 20:05 Impression: Primary Impression: Abdominal pain Additional Impression: ESRD (end stage renal disease) on dialysis Condition: Stable Referrals: PCP,UNKNOWN (PCP) PRIMARY CARE PROVIDER Additional Instructions: Requests urgent referral for dialysis as he missed his thursday dialysis. Claims that he is having trouble breathing and can't wait till am Transfer to [facility] for dialysis RTER prn Follow up PCP Problem Qualifiers Primary Impression: Abdominal pain Abdominal location: right lower quadrant Qualified Codes: R10.31 - Right lower quadrant pain ANKIT CLIFTON MD Jan 12, 2017 18:56
--- NOTE | 2017-01-12 19:10 | NUR ---
STATUS PT YELLING OUT, TELLING NURSING STAFF THAT HE JUST WANTS TO GO TO [facility], PT UPDATED ON PLAN OF CARE
--- NOTE | 2017-01-12 20:20 | NUR ---
PLAN OF CARE PT UPDATED THAT TRANSFER WAS IN PROCESS. PT YELLING, ARGUMENTATIVE, TELLING NURSING STAFF THAT IT SHOULD HAVE BEEN DONE HOURS AGO.
--- NOTE | 2017-01-12 20:21 | NUR ---
REPORT TO JULIA GRAY CHARGE NURSE AT [facility]
--- NOTE | 2017-01-12 20:59 | NUR ---
SADIA BULLARD, NOTIFIED OF TRANSFER
--- NOTE | 2017-01-12 21:07 | NUR ---
STATUS PT YELLING OUT, SPITTING ON FLOOR, TELLING NURSING STAFF THAT THEY HAD BETTER GET THEIR HEADS SCREWED ON STRAIGHT.
--- NOTE | 2017-01-12 21:15 | NUR ---
[facility] IN ER FOR TRANSFER.
--- NOTE | 2017-01-12 21:33 | NUR ---
TRANSFER PT LEFT WITH [facility] VIA STRETCHER.
[2017-01-12 21:40] VITALS: BP 152/94
== END 2017-01-12 21:33 | disposition short-term general hospital (02) ==
LOC: ER 18:16 → EDBD 18:16 → ER 21:33
DX: R10.31 Right lower quadrant pain (principal); N18.6 End stage renal disease; Z99.2 Dependence on renal dialysis; F41.9 Anxiety disorder, unspecified; F32.9 Major depressive disorder, single episode, unspecified; R34 Anuria and oliguria; Z88.8 Allergy status to other drugs, medicaments and biological substances; Z79.899 Other long term (current) drug therapy
CPT/HCPCS: 99283; 99285

== ENCOUNTER 2017-01-21 12:42 | Emergency (ER) | payer MEDICARE, MEDICAID ==
[~2017-01-21] VITALS: Ht 180.3 cm; Wt 100.8 kg
[2017-01-21] MEDS ORDERED: ZOFRAN IV STA (12:59)
[2017-01-21] MEDS ORDERED: DECADRON IH STA (12:59)
[2017-01-21] MEDS ORDERED: PREDNISONE PO STA (12:59)
[2017-01-21] MEDS ORDERED: DUONEB 0.5 MG-3 MG/3 ML SOLN IH STA (12:59)
[2017-01-21] MEDS ORDERED: SUBLIMAZE IV STA (12:59)
--- NOTE | 2017-01-21 13:06 | NUR ---
FENTANYL RN DOES NOT FEEL COMFORTABLE GIVING 100MCG FENTANYL TO PATIENT WITH SPO2 STAT <90% WHILE ON 5L/O2 VIA NC
[2017-01-21] MEDS ORDERED: ZOFRAN ONE (13:12)
[2017-01-21] MEDS ORDERED: PREDNISONE ONE (13:12)
[2017-01-21] MEDS ORDERED: DECADRON ONE (13:16)
[2017-01-21] MEDS ORDERED: DUONEB 0.5 MG-3 MG/3 ML SOLN IH ONE (13:16)
--- NOTE | 2017-01-21 13:20 | NUR ---
CT PT TAKEN TO CT VIA STRETCHER
--- NOTE | 2017-01-21 13:20 | NUR ---
CT patient to radiologu via stretcher for CT scan
[2017-01-21 13:24] LABS: BASOPHIL % 0.5 % (0.0-0.2); EOSINOPHIL # 0.1 10^3/uL (0.0-0.2); EOSINOPHIL % 2.3 % (0.0-5.0); HEMOGLOBIN 8.5 g/dL (13.9-16.3); LYMPHOCYTES # 0.8 10^3/uL (1.0-4.8); LYMPHOCYTES % 12.4 % (24.0-44.0); MEAN CELL HGB 29.8 pg (26-34); MEAN CELL HGB CONCENTRATION 33.1 g/dL (33-37); MEAN CORP VOLUME 90.2 fL (78-100); MEAN PLATELET VOLUME 8.5 fL (7.8-11.0); MONOCYTES # 0.6 10^3/uL (0.3-0.8); MONOCYTES % 9.8 % (5.0-12.0); NEUTROPHIL # 4.7 10^3/uL (1.8-7.7); NEUTROPHILS % 74.7 % (41.0-85.0); RED CELL DISTRIBUTION WIDTH 16.5 % (11.5-14.5); WHITE BLOOD CELL 6.2 10^3/uL (4.5-11.0)
[2017-01-21] MEDS ORDERED: SUBLIMAZE ONE (13:41)
--- NOTE | 2017-01-21 13:46 | PCM.EKG ---
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 Reading MD: Kip REEVES Measurements Intervals [place] Rate: 65 P: 34 [place]: 210 QRS: 106 QRSD: 128 T: 26 QT: 460 QTc: 478 Interpretive Statements Sinus rhythm with marked sinus arrhythmia with 1st degree AV block Right bundle branch block Abnormal ECG Compared to ECG 01/03/2017 19:50:28 First degree AV block now present Right bundle-branch block now present Prolonged QT interval no longer present Electronically Signed On 01-22-2017 17:24:07 RO[address] CONTRACT[address] by Kip REEVES Please click the below link to view image of tracing.
[2017-01-21 13:54] LABS: CARBON DIOXIDE 24.9 mmol/L (20.0-32)
--- NOTE | 2017-01-21 13:55 | DIREP ---
PROCEDURE:CHEST 1 VIEW COMPARISON:[facility], CR, XRAY CHEST SINGLE VW, 01/03/2017, 08:04 PM. INDICATIONS:COPD FINDINGS: LUNGS/PLEURA:No significant pulmonary parenchymal abnormalities. No effusions. Dialysis catheter identified in the superior vena cava. No fluid overload or CHF is seen. No pneumonia is identified. No effusions are seen. VASCULATURE:Normal. Unremarkable pulmonary vasculature. CARDIAC:The cardiac silhouette appears to be enlarged. MEDIASTINUM:Normal. No visible mass or adenopathy. BONES:Normal. No fracture or visible bony lesion. OTHER:Negative. CONCLUSION:Borderline cardiomegaly. Stable appearance to the dialysis catheter. No fluid overload, pneumonia or effusions are seen. Dictated by: Alan Hernandez MD on 01/21/2017 at 01:53 PM
[2017-01-21] MEDS ORDERED: CALCIUM GLUCONATE IV STA (14:30)
[2017-01-21] MEDS ORDERED: VENTOLIN IH STA (14:30)
[2017-01-21] MEDS ORDERED: HUMULIN R IV ONE (14:30)
--- NOTE | 2017-01-21 14:39 | NUR ---
IRAJ GUIDO ON PHONE WITH IRAJ MARSH
--- NOTE | 2017-01-21 14:48 | ER.PDOC ---
General Chief Complaint: Nausea,Vomiting,Diarrhea Stated Complaint: RESP DISTRESS, ABDOMINAL PAIN Time seen by MD: 14:00 Source: patient, family History of Present Illness Timing/Duration: 24 hours Severity/Quality: moderate Radiation: no radiation Associated Symptoms: diarrhea, nausea/vomiting Exacerbated by: cough, food Allergies: Coded Allergies: aspirin (Verified Allergy, Unknown, 01/06/17) PT DENIES ALLERGY codeine (Verified Allergy, Unknown, 01/06/17) PT DENIES ALLERGY enoxaparin (Verified Allergy, Unknown, 01/06/17) heparin (Verified Allergy, Unknown, 01/06/17) promethazine (Verified Allergy, Unknown, 01/06/17) PT DENIES ALLERGY Home Meds Reported Medications Budesonide, Micronized (BUDESONIDE) 0.5 Gm Powder, 0.5 GM MC DAILY 02/23/16 Carvedilol 3.125MG (COREG 3.125MG) 3.125 Mg Tablet, 1 TAB PO BID, #180 TAB 1 Refill 02/23/16 Calcium Carbonate (CALCIUM) 600 Mg Tablet, 600 MG PO DAILY, TABLET 02/23/16 Budesonide/Formoterol Fumarate (SYMBICORT 160-4.5 MCG INHALER) 10.2 Gm Hfa.aer.ad, 2 PUFF IH BID, #10.6 GRAM 3 Refills 02/23/16 Atorvastatin 20MG (LIPITOR 20MG) 20 Mg Tablet, 1 TAB PO DAILY, #90 TAB 1 Refill 02/23/16 Levothyroxine Sodium (LEVOTHYROXINE SODIUM) 175 Mcg Tablet, 1 TAB PO DAILY, #30 TAB 5 Refills 02/23/16 Pantoprazole Sodium (PANTOPRAZOLE SODIUM) 40 Mg Tablet.dr, 40 MG PO DAILY 10/19/15 Albuterol Sulfate (ALBUTEROL SULFATE) 2.5 Mg/3 Ml Vial.neb, 2.5 MG IH Y for COUGH 01/27/14 Gabapentin (GABAPENTIN) 100 Mg Capsule, 300 MG PO BID, CAPSULE 08/29/13 Vital Signs First Vital Signs Date Time Temp Pulse Resp B/P (MAP) Pulse Ox O2 Delivery O2 Flow Rate FiO2 01/21/17 12:52 98.7 69 20 76 01/21/17 13:00 112/58 (76) Last Vital Signs Date Time Temp Pulse Resp B/P (MAP) Pulse Ox O2 Delivery O2 Flow Rate FiO2 01/21/17 13:47 69 18 86 01/21/17 13:00 98.7 112/58 (76) Past Medical History Medical History: congestive heart failure, COPD, diabetes, hypertension, renal disease Surgical History: renal, other Social History Smoking: non-smoker Alcohol Use: none Drug Use: none All Other Systems: Reviewed and Negative Physical Exam General Appearance: Anxious HEENT: PERRL/EOMI, Normal ENT Inspection, TMs Normal, Pharynx Normal Neck: Non-Tender, Full Range of Motion, Supple, Normal Inspection Respiratory: wheezing Cardiovascular: Normal Peripheral Pulses, Regular Rate, Rhythm, No Edema, No Gallop, No JVD, No Murmur Gastrointestinal: Tenderness (RUQ) Back: Normal Inspection, No CVA Tenderness, No Vertebral Tenderness Extremities: Normal Range of Motion, Non-Tender, Normal Inspection, No Pedal Edema, No Calf Tenderness, Normal Capillary Refill, Pelvis Stable Neurologic/Psychiatric: net sorter II-XII NML as Tested, No Motor/Sensory Deficits, Alert, Normal Mood/Affect, Oriented x 3 Skin: Normal Color, Warm/Dry Lymphatic: No Adenopathy Results/Orders Results/Orders Laboratory Tests Test 01/21/17 13:16 White Blood Count 6.2 10^3/uL (4.5-11.0) Red Blood Count 2.85 10^6/uL (4.50-5.90) Hemoglobin 8.5 g/dL (13.9-16.3) Hematocrit 25.7 % (37.0-53.0) Mean Corpuscular Volume 90.2 fL (78-100) Mean Corpuscular Hemoglobin 29.8 pg (26-34) Mean Corpuscular Hemoglobin Concent 33.1 g/dL (33-37) Red Cell Distribution Width 16.5 % (11.5-14.5) Platelet Count 109 10^3/uL (150-400) Mean Platelet Volume 8.5 fL (7.8-11.0) Neutrophils (%) (Auto) 74.7 % (41.0-85.0) Lymphocytes (%) (Auto) 12.4 % (24.0-44.0) Monocytes (%) (Auto) 9.8 % (5.0-12.0) Neutrophils # (Auto) 4.7 10^3/uL (1.8-7.7) Lymphocytes # (Auto) 0.8 10^3/uL (1.0-4.8) Monocytes # (Auto) 0.6 10^3/uL (0.3-0.8) Absolute Immature Granulocyte (auto 0.02 10^3 u/L (0-2) Eosinophils % 2.3 % (0.0-5.0) Basophils % 0.5 % (0.0-0.2) Basophils # 0.0 10^3/uL (0.0-0.1) Eosinophil Count 0.1 10^3/uL (0.0-0.2) Prothrombin Time 11.8 SEC (9.8-11.9) Prothrombin Time INR (Non-Therap) 1.1 Activated Partial Thromboplast Time 32.0 SEC (24.67-30.72) Sodium Level 133 mmol/L (132-145) Potassium Level 8.3 mmol/L (3.6-5.2) Chloride Level 98.0 mmol/L (96-109) Carbon Dioxide Level 24.9 mmol/L (20.0-32) Anion Gap 18.4 Blood Urea Nitrogen 112 mg/dL (7-18) Creatinine 11.09 mg/dL (0.59-1.40) Estimated GFR () 6.1 (>/=60) BUN/Creatinine Ratio 10.0 Glucose Level 100 mg/dL (70-110) Calcium Level 9.0 mg/dL (8.4-10.5) Total Bilirubin 1.2 mg/dL (0.2-1.0) Aspartate Amino Transf (AST/SGOT) 24 U/L (0-35) Alanine Aminotransferase (ALT/SGPT) 15 U/L (12-78) Alkaline Phosphatase 231 U/L (50-136) Total Creatine Kinase 50 U/L (39-308) Creatine Kinase MB 4.7 ng/mL (0.5-3.6) Troponin I 0.03 ng/mL (0.00-0.05) Pro-B-Type Natriuretic Peptide 43425 pg/mL (0-125) Total Protein 7.3 g/dL (6.4-8.2) Albumin 3.7 g/dL (3.4-5.0) Globulin 3.6 Amylase Level 75 U/L (25-115) Lipase 149 U/L (114-286) Percent Immature Gran (Cell Imm) 0.30 % (0.00-0.50) Helicobacter pylori Screen NEGATIVE (NEGATIVE) Administered Medications Medications (Trade) Dose Ordered Sig/Miguel Route PRN Reason Start Time Stop Time Status Last Admin Dose Admin Albuterol/ Ipratropium (Duoneb 0.5 Mg-3 Mg/3 ml Soln) 3 ml STAT STAT IH 01/21/17 12:59 01/21/17 13:04 DC 01/21/17 13:43 Dexamethasone Sodium Phosphate (Decadron) 4 mg STAT STAT IH 01/21/17 12:59 01/21/17 13:04 DC 01/21/17 13:43 Prednisone (Prednisone) 20 mg STAT STAT PO 01/21/17 12:59 01/21/17 13:04 DC 01/21/17 13:19 Ondansetron HCl (Zofran) 4 mg STAT STAT IV 01/21/17 12:59 01/21/17 13:04 DC 01/21/17 13:19 Fentanyl Citrate (Sublimaze) 100 mcg STAT STAT IV 01/21/17 12:59 01/21/17 13:04 DC 01/21/17 13:46 EKG/XRAY/CT/US EKG: NSR, nonspecific ST T wave chg Consult/PCP Time Consult/PCP Called: 15:55 Consult/PCP: DR TYSON Elaine Blood Pressure Systolic: 112 Blood Pressure Diastolic: 58 Blood Pressure Mean: 76 Departure Time of Disposition: 15:55 Disposition: 70 DISC/XFER TO ANOTH TYP HLTH Impression: Primary Impression: Hyperkalemia Referrals: PCP,UNKNOWN (PCP) PRIMARY CARE PROVIDER FABY GUIDO MD Jan 21, 2017 14:48
[2017-01-21] MEDS ORDERED: VENTOLIN IH ONE (14:54)
--- NOTE | 2017-01-21 14:58 | DIREP ---
PROCEDURE:CT ABDOMEN/PELVIS W/O CONTRAST COMPARISON:None. INDICATIONS:RUQ PAIN TECHNIQUE:Axial images were created through the abdomen and pelvis without intravenous contrast material. No oral contrast was administered. Sagittal and coronal reconstructions were performed from source images. FINDINGS: LUNG BASES:Mild bilateral atelectasis. Trace right pleural effusion. Mild bilateral pleural thickening may be chronic. Correlate with clinical findings. Calcified atherosclerosis. LIVER:Normal. No significant liver lesions are identified. BILIARY:Normal. No visible dilatation or calcification. PANCREAS:Normal. No lesion, fluid collection, ductal dilatation, or atrophy. SPLEEN:Spleen is enlarged measuring 18.9 cm in AP dimensions. ADRENALS:Normal. No mass or enlargement. URINARY TRACT:Bilateral renal atrophy. AORTA/VASCULAR:Excessive calcified atherosclerosis. RETROPERITONEUM:Small lymph nodes along the aorta, largest just below the left renal vein measures 2.2 x 1.6 cm. BOWEL/MESENTERY:There is a fluid collection in the right mid abdomen just below the tip of the liver measures 5 cm in cephalocaudal, 4.3 cm in transverse and 4 cm in AP dimensions. There is some stranding and edema in the lateral soft tissues to this fluid collection. The appearance of the fluid collection is nonspecific. Without contrast the evaluation is limited. Differential includes abscess, hematoma, seroma, lymphocele etc. No bowel obstruction. Appendix is not seen. ABDOMINAL WALL:Fatty change of the right rectus abdominis muscle. Edema in the body wall. PELVIC ORGANS:Normal. No visible mass. Pelvic organs appropriate for patient age. BONES:Sclerosis throughout the bones, correlate for renal insufficiency. OTHER:Negative. CONCLUSION: 1. Right mid abdomen fluid collection as detailed above with mild adjacent stranding edema. Differential is above. 2. Trace right pleural effusion and bilateral pulmonary atelectasis and mild pleural thickening. Correlate with clinical findings. 3. Enlarged spleen. 4. Small lymph nodes throughout the retroperitoneum, these are nonspecific. Dictated by: Nilesh Larsen M.D. on 01/21/2017 at 02:52 PM
--- NOTE | 2017-01-21 15:00 | NUR ---
DR EFREN SCHWARTZ HAS BEEN NOTIFIED
--- NOTE | 2017-01-21 15:21 | NUR ---
[facility] HAS BEEN NOTIFIED OF TRANSFER
[2017-01-21] MEDS ORDERED: HUMULIN R ONE (15:33)
[2017-01-21] MEDS ORDERED: DEXTROSE 50%-WATER SYRINGE IV STA (15:36)
[2017-01-21 16:07] VITALS: BP 99/67
== END 2017-01-21 16:03 | disposition other institution (70) ==
LOC: ER 12:42
DX: E87.5 Hyperkalemia (principal); I11.0 Hypertensive heart disease with heart failure; I50.9 Heart failure, unspecified; E11.9 Type 2 diabetes mellitus without complications; J44.9 Chronic obstructive pulmonary disease, unspecified; R19.7 Diarrhea, unspecified; R10.11 Right upper quadrant pain
CPT/HCPCS: 36415; 71010; 74176; 80053; 82150; 82550; 82553; 82948; 83690; 83880; 84484; 85025; 85610; 86677; 93005; 94640 ×2; 96374; 96375; 99285; J0610; J1100; J1815; J2405; J3010; J7512; J7613; J7620; J7060